=== PATIENT | male | born 1970 | race Caucasian/White ===

== ENCOUNTER 2016-07-09 15:28 | Inpatient (IN) | payer OTHER ==
[2016-07-09 16:08] VITALS: BMI 23.5
--- NOTE | 2016-07-09 18:22 | HP ---
CIWA Score - CIWA Score Nausea/Vomitin Muscle Tremors: 3 Anxiety: 3 Agitation: 3 Paroxysmal Sweats: 2 Orientation: 0-Oriented Tacttile Disturbances: 2-Mild Itch/Numbness/Burn Auditory Disturbances: 2-Mild Harshness/Frighten Visual Disturbances: 2-Mild Sensitivity Headache: 2-Mild CIWA-Ar Total Score: 22 Admission ROS [facility] - HPI Chief Complaint: I NEED HELP TO STOP DRINKING ALCOHOL Allergies/Adverse Reactions: Allergies Allergy/AdvReac Type Severity Reaction Status Date / Time No Known Allergies Allergy Verified 07/09/16 18:33 History of Present Illness: THIS 46 YEARS OLD MALE WITH ALCOHOL DEPENDENCE,WITHDRAWAL SYMPTOM,LAST DETOX [facility] 01/04 NICOTINE DEPENDENCE FX RIGHT FOREARM AND LEFT THUMB ON IMMOBILIZATION TREATED AT [place] ON 06/22/16 HAD APPOINTMENT TO SEE HAND SPECIALIST SURGEON ON 07/05 AT 11.00 AM LONGEST SOBRIETY 6 MONTHS HIV SINCE 2013 Exam Limitations: No Limitations - Ebola screening Have you traveled outside of the country in the last 21 days: No Have you traveled to any of the following countries: [place] Have you had contact with anyone from an Ebola affected area: No Have you been sick,other than usual withdrawal symptoms: No Do you have a fever: No - Review of Systems Constitutional: Loss of Appetite, Malaise, Night Sweats, Changes in sleep, Weakness, Unintentional Wgt. Loss EENT: reports: Nose Congestion Respiratory: reports: No Symptoms reported Cardiac: reports: No Symptoms Reported GI: reports: Nausea, Vomiting, Abdominal cramping : reports: No Symptoms Reported Musculoskeletal: reports: Back Pain, Muscle Pain, Other (FX OF RIGHT FOREARM ON IMMOBILIZATION FX OF LEFT THUMB ON IMMOBILIZATION) Neuro: reports: Tremors Endocrine: reports: No Symptoms Reported Hematology: reports: No Symptoms Reported Psychiatric: reports: other (INSOMNIA) Patient History - Patient Medical History Hx Anemia: No Hx Asthma: Yes (ON ALBUTEROL INHAER) Hx Chronic Obstructive Pulmonary Disease (COPD): No Hx Cancer: No Hx Cardiac Disorders: No Hx Congestive Heart Failure: No Hx Hypertension: Yes (NON COMPLIANCE) Hx Hypercholesterolemia: No Hx Pacemaker: No HX Cerebrovascular Accident: No Hx Seizures: No Hx Dementia: No Hx Diabetes: No Hx Gastrointestinal Disorders: No Hx Liver Disease: No Hx Genitourinary Disorders: No Hx Sexually Transmitted Disorders: No Hx Renal Disease (ESRD): No Hx Thyroid Disease: No Hx Human Immunodeficiency Virus (HIV): Yes (06/04. not sure of CD4 count, using A tripla ) Hx Hepatitis C: Yes (diagnosed 2012) Hx Depression: Yes Hx Suicide Attempt: No Hx Bipolar Disorder: Yes (hx using welbutrin in the past ) Hx Schizophrenia: No Other Medical History: NO SUICIDAL,NO HOMICIDAL - Patient Surgical History Past Surgical History: No Hx Neurologic Surgery: No Hx Cataract Extraction: No Hx Cardiac Surgery: No Hx Lung Surgery: No Hx Breast Surgery: No Hx Breast Biopsy: No Hx Abdominal Surgery: No Hx Appendectomy: No Hx Cholecystectomy: No Hx Genitourinary Surgery: No Hx Section: No Hx Orthopedic Surgery: No Anesthesia Reaction: No - PPD History Previous Implant?: Yes Documented Results: Positive w/proof Implanted On Prior [facility] Admission?: No PPD to be Administered?: No - Smoking Cessation Smoking history: Current every day smoker Have you smoked in the past 12 months: Yes Aproximately how many cigarettes per day: 20 Cigars Per Day: 0 Hx Chewing Tobacco Use: No Initiated information on smoking cessation: Yes 'Breaking Loose' booklet given: 07/09/16 - Substance & Tx. History Hx Alcohol Use: Yes Hx Substance Use: No Substance Use Type: Alcohol Hx Substance Use Treatment: Yes ([facility] 01/04) - Substances Abused Alcohol Route: Oral Frequency: Daily Amount used: 1/2 PINT OF VODKA/2 OF 6 PACKS OF 16 OZS OF BEER Age of first use: 17 Date of Last Use: 07/09/16 Family Disease History - Family Disease History Family Disease History: CA: Sister (BREAST), Other: Father (etoh,), Sister Admission Physical Exam [facility] - Vital Signs Vital Signs: Vital Signs - 24 hr 07/09/16 16:06 Temperature 97.4 F L Pulse Rate 81 Respiratory 20 Rate Blood Pressure 140/81 - Physical General Appearance: Yes: Moderate Distress, Tremorous, Irritable, Sweating, Anxious HEENTM: Yes: Nasal Congestion Respiratory: Yes: Lungs Clear Neck: Yes: Within Normal Limits Breast: Yes: Within Normal Limits Cardiology: Yes: Within Normal Limits, Regular Rhythm, Regular Rate, S1, S2 Abdominal: Yes: Within Normal Limits, Normal Bowel Sounds, Non Tender, Soft Genitourinary: Yes: Within Normal Limits Back: Yes: Muscle Spasm Musculoskeletal: Yes: Back pain, Muscle Pain Extremities: Yes: Tremors (FX F RIGHT FOREARM ON IMMOBILIZATION FX LEFT THUMB ON IMMOBILIZATION) Neurological: 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: 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 II-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 NML intact, Fully Oriented, Alert, Motor Strength 5/5 Integumentary: Yes: Dry Lymphatic: Yes: Within Normal Limits - Diagnostic (1) Tinea pedis Current Visit: No Status: Acute (2) Alcohol dependence with withdrawal Current Visit: No Status: Chronic Qualifiers: Complication of substance-induced condition: uncomplicated Qualified Code(s): F10.230 - Alcohol dependence with withdrawal, uncomplicated (3) Asthma Current Visit: No Status: Chronic (4) Bipolar disorder Current Visit: No Status: Chronic (5) HTN (hypertension) Current Visit: No Status: Chronic Qualifiers: Hypertension type: essential hypertension Qualified Code(s): I10 - Essential (primary) hypertension (6) Hepatitis C carrier Current Visit: No Status: Chronic (7) Nicotine dependence, uncomplicated Current Visit: No Status: Chronic Qualifiers: Nicotine product type: cigarettes Qualified Code(s): F17.210 - Nicotine dependence, cigarettes, uncomplicated (8) Weight decreased Current Visit: No Status: Chronic (9) Forearm fracture Current Visit: Yes Status: Acute (10) Fracture of thumb, left, closed Current Visit: Yes Status: Acute Cleared for Admission S - Detox or Rehab [facility] Level of Care: Medically Managed Detox Regimen/Protocol: Librium S Breath Alcohol Content Breath Alcohol Content: 0 Urine Drug Screen - Results Drug Screen Negative: Yes
[2016-07-09] MEDS ORDERED: MENTHOL/PHENOL 1 EACH UD MM PRN (18:48)
[2016-07-09] MEDS ORDERED: MAGNESIUM HYDROX 2400MG/30ML ORAL SUSPENSION 30 ML CUP PO PRN (18:48)
[2016-07-09] MEDS ORDERED: guaiFENesin/D-METHORPHAN HB 10 ML UNIT-DOSE CUPS PO PRN (18:48)
[2016-07-09] MEDS ORDERED: ACETAMINOPHEN 325 MG TABLET (FP) PO PRN (18:48)
[2016-07-09] MEDS ORDERED: LOPERAMIDE HCL 2 MG CAPSULE PO PRN (18:48)
[2016-07-09] MEDS ORDERED: MAG HYDROX/AL HYDROX/SIMETH 30 ML UNIT-DOSE CUP PO PRN (18:48)
[2016-07-09] MEDS ORDERED: chlordiazePOXIDE HCL 25 MG CAPSULE PO ONE (18:48)
[2016-07-09] MEDS ORDERED: P-EPHED 60MG/TRIPROLIDI 2.5MG TABLET PO PRN (18:48)
[2016-07-09] MEDS ORDERED: IBUPROFEN 400 MG TABLET (FP) PO PRN (18:48)
[2016-07-09] MEDS ORDERED: hydrOXYzine PAMOATE 50 MG CAPSULE (FP) PO PRN (18:48)
[2016-07-09] MEDS ORDERED: MAGNESIUM CITRATE 300 ML BOTTLE PO PRN (18:48)
[2016-07-09] MEDS ORDERED: chlordiazePOXIDE HCL 25 MG CAPSULE PO PRN (18:48)
[2016-07-09] MEDS ORDERED: IBUPROFEN 600 MG TABLET (FP) PO PRN (18:53)
[2016-07-09] MEDS: NICOTINE POLACRILEX 2 MG GUM BUC PRN (20:58)
[2016-07-09] MEDS: THIAMINE HCL 100 MG TABLET (FP) PO SCH (22:55)
[2016-07-09] MEDS: diphenhydrAMINE HCL 50 MG CAPSULE PO PRN (22:57)
[2016-07-09] MEDS: chlordiazePOXIDE HCL 25 MG CAPSULE PO SCH (23:00)
[2016-07-09] MEDS: TOLNAFTATE 1% CREAM 15 GM TUBE TP SCH (23:40)
[2016-07-09] MEDS: AMMONIUM LACTATE 12% LOTION 225 GM BOTTLE TP SCH (23:40)
[2016-07-10] MEDS: chlordiazePOXIDE HCL 25 MG CAPSULE PO SCH ×3 (06:21→17:19)
[2016-07-10] MEDS ORDERED: EMTRICITABINE 200MG/TENOFOVIR 300MG PO SCH (10:00)
[2016-07-10] MEDS ORDERED: PRENATAL VITAMINS W/ FOLIC ACID TABLET (FP) PO SCH (10:00)
[2016-07-10] MEDS ORDERED: EFAVIRENZ 600 MG TABLET PO SCH (10:00)
[2016-07-10] MEDS: TOLNAFTATE 1% CREAM 15 GM TUBE TP SCH ×2 (10:59→22:34)
[2016-07-10] MEDS: AMMONIUM LACTATE 12% LOTION 225 GM BOTTLE TP SCH ×2 (10:59→22:33)
--- NOTE | 2016-07-10 11:43 | PN ---
S CIWA - CIWA Score Nausea/Vomitin-Mild Nausea/No Vomiting Muscle Tremors: 3 Anxiety: 4-Mod. Anxious/Guarded Agitation: 4-Moderately Restless Paroxysmal Sweats: 3 Orientation: 0-Oriented Tacttile Disturbances: 0-None Auditory Disturbances: 0-None Visual Disturbances: 0-None Headache: 0-None Present CIWA-Ar Total Score: 15 BHS Progress Note (SOAP) Subjective: Anxiety,tremors,sweating,interrupted sleep,restless Objective: 07/10/16 11:42 Last Vital Signs Temp Pulse Resp BP Pulse Ox 99 F 84 18 135/87 07/09/16 22:46 07/09/16 22:46 07/10/16 03:30 07/09/16 22:46 Assessment: 07/10/16 11:43 Withdrawal sx. Plan: Continue detox
[2016-07-10] MEDS: NICOTINE POLACRILEX 2 MG GUM BUC PRN (20:19)
[2016-07-10] MEDS: chlordiazePOXIDE 5 MG CAPSULE PO SCH (22:34)
[2016-07-10] MEDS: diphenhydrAMINE HCL 50 MG CAPSULE PO PRN (22:34)
[2016-07-10] MEDS: THIAMINE HCL 100 MG TABLET (FP) PO SCH (22:34)
[2016-07-10] MEDS ORDERED: chlordiazePOXIDE HCL 25 MG CAPSULE PO SCH (23:00)
--- NOTE | 2016-07-11 00:47 | EKG ---
Test Reason : Blood Pressure : / mmHG Vent. Rate : 070 BPM Atrial Rate : 070 BPM P-R Int : 146 ms QRS Dur : 074 ms QT Int : 372 ms P-R-T Axes : 061 037 045 degrees QTc Int : 401 ms NORMAL SINUS RHYTHM NORMAL ECG NO PREVIOUS ECGS AVAILABLE Confirmed by MARBELLA BLACK MD ([id number]) on 07/11/2016 12:47:16 AM Referred By: Confirmed By:MARBELLA BLACK MD
[2016-07-11] MEDS: chlordiazePOXIDE 5 MG CAPSULE PO SCH (05:35)
[2016-07-11 10:12] VITALS: BP 124/79; PULSE 64; TEMP 96.8
--- NOTE | 2016-07-11 10:42 | PN ---
[facility] Progress Note Note: Patient signed out AMA and could not be seen
--- NOTE | 2016-07-11 17:06 | DS ---
[facility] Detox Discharge Summary Admission Date: 07/09/16 Discharge Date: 07/11/16 - History Present History: Alcohol Dependence Additional Comments: ADVISED PATIENT TO FOLLOW-UP WITH [facility] FOR GENERAL MEDICAL ASSESSMENT AND FOR ABNORMAL LAB VALUES. Pertinent Past History: HTN, Asthma,Bi-Polar Disorder, Hep C. - Physical Exam Results Vital Signs: Vital Signs Temperature 96.8 F L 07/11/16 10:11 Pulse Rate 64 07/11/16 10:11 Respiratory Rate 18 07/11/16 10:11 Blood Pressure 124/79 07/11/16 10:11 O2 Sat by Pulse Oximetry (%) Pertinent Admission Physical Exam Findings: WITHDRAWAL SYMPTOMS. - Treatment Hospital Course: Detoxed Safely - Medication Discharge Medications: Ambulatory Orders Albuterol Sulfate Inhaler - [Ventolin HFA Inhaler -] 2 inh PO Q4H PRN 06/11/13 Efavirenz/Emtricitab/Tenofovir [Atripla Tablet -] 1 tab PO HS 03/25/14 Bupropion HCl [Wellbutrin Xl -] 300 mg PO DAILY #30 tab.sr.24h 06/03/15 Trazodone HCl [Desyrel -] 150 mg PO HS #30 tablet 06/03/15 Gabapentin [Neurontin -] 800 mg PO BID 06/17/15 Gabapentin [Neurontin -] 800 mg PO HS #30 capsule 06/26/15 Quetiapine Fumarate [Seroquel -] 25 mg PO HS PRN #30 tablet 06/26/15 - Diagnosis (1) Human immunodeficiency virus infection Status: Chronic (2) Drug-induced mood disorder Status: Acute (3) Asthma Status: Chronic (4) Bipolar disorder Status: Chronic Qualifiers: Active/Remission status: remission status unspecified Qualified Code (s): F31.9 - Bipolar disorder, unspecified (5) HTN (hypertension) Status: Chronic Qualifiers: Hypertension type: essential hypertension Qualified Code(s): I10 - Essential (primary) hypertension (6) Hepatitis C carrier Status: Chronic (7) Nicotine dependence, uncomplicated Status: Chronic Qualifiers: Nicotine product type: cigarettes Qualified Code(s): F17.210 - Nicotine dependence, cigarettes, uncomplicated (8) Alcohol dependence with uncomplicated withdrawal Status: Acute - AMA Did Patient Leave Against Medical Advice: Yes (PATIENT DID NOT ANT TO STAY ON UNIT TO COMPLETE DETOX REGIMEN.)
[2016-07-11] MEDS ORDERED: chlordiazePOXIDE 5 MG CAPSULE PO SCH (23:00)
[2016-07-11] MEDS ORDERED: chlordiazePOXIDE HCL 10 MG CAPSULE PO SCH (23:00)
[2016-07-12] MEDS ORDERED: chlordiazePOXIDE HCL 10 MG CAPSULE PO SCH (23:00)
== END 2016-07-11 10:58 | disposition left against medical advice (07) | DRG 770 ==
LOC: YASAS 15:28 → Y3N 17:02
PROVIDERS: ADMIT Internal Medicine; ATTEND Internal Medicine
PROC: HZ2ZZZZ Detoxification Services for Substance Abuse Treatment (ICD-10-PCS; principal; 2016-07-09)
DX: F10.230 Alcohol dependence with withdrawal, uncomplicated (principal); F17.210 Nicotine dependence, cigarettes, uncomplicated; F19.24 Other psychoactive substance dependence with psychoactive substance-induced mood disorder; F31.9 Bipolar disorder, unspecified; Z21 Asymptomatic human immunodeficiency virus [HIV] infection status; I10 Essential (primary) hypertension; B18.2 Chronic viral hepatitis C; Z91.14 Patient's other noncompliance with medication regimen; B35.3 Tinea pedis; Z87.898 Personal history of other specified conditions; Z87.81 Personal history of (healed) traumatic fracture
CPT/HCPCS: 93005; 93010

== ENCOUNTER 2020-07-07 15:20 | Inpatient (IN) | payer OTHER ==
[2020-07-07] MEDS ORDERED: guaiFENesin 200 MG/10 ML 10 ML UNIT-DOSE CUPS PO PRN (17:30)
[2020-07-07] MEDS ORDERED: ACETAMINOPHEN 325 MG TABLET (FP) PO PRN (17:30)
[2020-07-07] MEDS ORDERED: MAGNESIUM HYDROX 2400MG/30ML ORAL SUSPENSION 30 ML CUP PO PRN (17:30)
[2020-07-07] MEDS ORDERED: METHADONE HCL 10 MG TABLET (FOR DETOX USE ONLY) PO ONE (17:30)
[2020-07-07] MEDS ORDERED: BISMUTH SUBSALICYLATE 524 MG/30 ML UD PO PRN (17:30)
[2020-07-07] MEDS ORDERED: P-EPHED 60MG/TRIPROLIDI 2.5MG TABLET PO PRN (17:30)
[2020-07-07] MEDS ORDERED: ONDANSETRON *ODT* 4 MG TABLET SL PRN (17:30)
[2020-07-07] MEDS ORDERED: MENTHOL/PHENOL 1 EACH UD MM PRN (17:30)
[2020-07-07] MEDS ORDERED: cloNIDine HCL 0.1 MG TABLET PO PRN (17:30)
[2020-07-07] MEDS ORDERED: IBUPROFEN 400 MG TABLET (FP) PO PRN (17:30)
[2020-07-07] MEDS ORDERED: MAG HYDROX/AL HYDROX/SIMETH 30 ML UNIT-DOSE CUP PO PRN (17:30)
[2020-07-07] MEDS ORDERED: MAGNESIUM CITRATE 300 ML BOTTLE PO PRN (17:30)
[2020-07-07] MEDS ORDERED: ALBUTEROL SO4 HFA INHALER IH PRN (17:35)
[2020-07-07] MEDS: hydrOXYzine PAMOATE 25 MG CAPSULE (FP) PO SCH ×2 (18:00→22:01)
[2020-07-07 18:20] VITALS: BMI 20.3
[2020-07-07] MEDS ORDERED: METHADONE HCL 10 MG TABLET (FOR DETOX USE ONLY) ONE (21:55)
[2020-07-07] MEDS: NICOTINE 21 MG/24 HOURS TOPICAL PATCH TD SCH (21:57)
[2020-07-07] MEDS: PRENATAL VITAMINS W/ FOLIC ACID TABLET (FP) PO SCH (21:58)
[2020-07-07] MEDS: MELATONIN 5 MG TABLETS PO SCH (22:00)
[2020-07-07] MEDS: THIAMINE HCL 100 MG TABLET (FP) PO SCH (22:00)
[2020-07-07] MEDS ORDERED: hydrOXYzine PAMOATE 25 MG CAPSULE (FP) PO ONE (22:01)
[2020-07-08] MEDS: CLINDAMYCIN HCL 150 MG CAPSULE (FP) PO SCH ×4 (01:07→19:12)
[2020-07-08] MEDS: hydrOXYzine PAMOATE 25 MG CAPSULE (FP) PO SCH ×5 (07:15→23:05)
[2020-07-08] MEDS ORDERED: METHADONE HCL 5 MG TABLET (FOR DETOX USE ONLY) ONE (09:39)
[2020-07-08] MEDS ORDERED: METHADONE HCL 10 MG TABLET (FOR DETOX USE ONLY) ONE (09:40)
[2020-07-08] MEDS ORDERED: METHADONE (DETOX) 20 MG, METHADONE (DETOX) 5 MG PO ONE (10:00)
[2020-07-08] MEDS: diazePAM 5 MG TABLET PO PRN ×2 (10:11→19:12)
[2020-07-08] MEDS: NICOTINE 21 MG/24 HOURS TOPICAL PATCH TD SCH (10:14)
[2020-07-08] MEDS: PRENATAL VITAMINS W/ FOLIC ACID TABLET (FP) PO SCH (10:15)
[2020-07-08 11:25] LABS: HEMATOCRIT 37.1 % (35.4-49); HEMOGLOBIN 12.3 GM/dL (11.7-16.9); MCH 26.9 pg (25.7-33.7); MCHC 33.1 g/dl (32.0-35.9); MEAN CELL VOLUME 81.2 fl (80-96); MEAN PLT VOLUME 8.3 fl (7.5-11.1); PLATELET COUNT 239 K/MM3 (134-434); RBC 4.57 M/mm3 (4.00-5.60); WHITE BLOOD COUNT 4.8 K/mm3 (4.0-10.0)
[2020-07-08 11:26] LABS: POTASSIUM 4.1 mmol/L (3.5-5.1)
[2020-07-08 11:30] LABS: ALBUMIN 2.7 g/dl (3.4-5.0); CALCIUM 8.2 mg/dL (8.5-10.1)
[2020-07-08 11:31] LABS: BLOOD UREA NITROGEN 17.7 mg/dL (7-18)
[2020-07-08 11:41] LABS: BILIRUBIN,TOTAL 0.3 mg/dL (0.2-1)
[2020-07-08 11:45] LABS: CREATININE 0.8 mg/dL (0.55-1.3)
[2020-07-08] MEDS ORDERED: PENICILLIN G BENZATHINE 2,400,000 UNIT/4 ML PFS IM ONE (14:34)
[2020-07-08] MEDS: MELATONIN 5 MG TABLETS PO SCH (23:05)
[2020-07-08] MEDS: THIAMINE HCL 100 MG TABLET (FP) PO SCH (23:05)
[2020-07-09] MEDS: CLINDAMYCIN HCL 150 MG CAPSULE (FP) PO SCH ×5 (00:05→23:32)
[2020-07-09] MEDS: NICOTINE POLACRILEX 4 MG GUM BUC PRN ×3 (03:50→17:35)
[2020-07-09] MEDS: diazePAM 5 MG TABLET PO PRN ×4 (03:53→22:36)
[2020-07-09] MEDS: hydrOXYzine PAMOATE 25 MG CAPSULE (FP) PO SCH ×6 (05:07→22:36)
[2020-07-09] MEDS: METHOCARBAMOL 500 MG TABLET PO PRN (09:10)
[2020-07-09] MEDS ORDERED: METHADONE HCL 10 MG TABLET (FOR DETOX USE ONLY) PO ONE (10:00)
[2020-07-09] MEDS: PRENATAL VITAMINS W/ FOLIC ACID TABLET (FP) PO SCH (10:09)
[2020-07-09] MEDS: NICOTINE 21 MG/24 HOURS TOPICAL PATCH TD SCH (10:11)
[2020-07-09] MEDS: ELVITEG/COB/EMTRI/TENOF (GENVOYA) TABLET (NF) PO SCH (17:32)
[2020-07-09] MEDS: MELATONIN 5 MG TABLETS PO SCH (22:36)
[2020-07-09] MEDS: THIAMINE HCL 100 MG TABLET (FP) PO SCH (22:36)
[2020-07-10] MEDS: CLINDAMYCIN HCL 150 MG CAPSULE (FP) PO SCH ×5 (06:30→23:00)
[2020-07-10] MEDS: hydrOXYzine PAMOATE 25 MG CAPSULE (FP) PO SCH ×2 (06:30→09:26)
[2020-07-10] MEDS ORDERED: METHADONE HCL 5 MG TABLET (FOR DETOX USE ONLY) ONE (09:24)
[2020-07-10] MEDS ORDERED: METHADONE HCL 10 MG TABLET (FOR DETOX USE ONLY) ONE (09:24)
[2020-07-10] MEDS: diazePAM 5 MG TABLET PO PRN ×3 (09:32→22:20)
[2020-07-10] MEDS: NICOTINE 21 MG/24 HOURS TOPICAL PATCH TD SCH (09:38)
[2020-07-10] MEDS: PRENATAL VITAMINS W/ FOLIC ACID TABLET (FP) PO SCH (09:44)
[2020-07-10] MEDS ORDERED: METHADONE (DETOX) 10 MG, METHADONE (DETOX) 5 MG PO ONE (10:00)
[2020-07-10] MEDS: ELVITEG/COB/EMTRI/TENOF (GENVOYA) TABLET (NF) PO SCH (10:10)
[2020-07-10] MEDS: NICOTINE POLACRILEX 4 MG GUM BUC PRN ×2 (10:14→18:00)
[2020-07-10] MEDS ORDERED: cloNIDine HCL 0.1 MG TABLET PO ONE (11:25)
[2020-07-10] MEDS: cloNIDine HCL 0.1 MG TABLET PO PRN (17:57)
[2020-07-10] MEDS: METHOCARBAMOL 500 MG TABLET PO PRN (18:01)
[2020-07-10] MEDS: SUVOREXANT 10 MG TABLET PO PRN (22:19)
[2020-07-10] MEDS: THIAMINE HCL 100 MG TABLET (FP) PO SCH (22:20)
[2020-07-10] MEDS: MELATONIN 5 MG TABLETS PO SCH (22:58)
[2020-07-11] MEDS: CLINDAMYCIN HCL 150 MG CAPSULE (FP) PO SCH ×3 (06:15→17:44)
[2020-07-11] MEDS: diazePAM 5 MG TABLET PO PRN (06:16)
[2020-07-11] MEDS ORDERED: METHADONE HCL 10 MG TABLET (FOR DETOX USE ONLY) PO ONE (10:00)
[2020-07-11] MEDS: hydrOXYzine PAMOATE 50 MG CAPSULE (FP) PO PRN ×3 (10:31→22:34)
[2020-07-11] MEDS: NICOTINE 21 MG/24 HOURS TOPICAL PATCH TD SCH (10:35)
[2020-07-11] MEDS: PRENATAL VITAMINS W/ FOLIC ACID TABLET (FP) PO SCH (10:35)
[2020-07-11] MEDS: cloNIDine HCL 0.1 MG TABLET PO PRN ×2 (11:17→17:45)
[2020-07-11] MEDS: ELVITEG/COB/EMTRI/TENOF (GENVOYA) TABLET (NF) PO SCH (13:06)
[2020-07-11] MEDS: NICOTINE POLACRILEX 4 MG GUM BUC PRN (17:46)
[2020-07-11] MEDS: SUVOREXANT 10 MG TABLET PO PRN (22:33)
[2020-07-11] MEDS: THIAMINE HCL 100 MG TABLET (FP) PO SCH (22:34)
[2020-07-11] MEDS: MELATONIN 5 MG TABLETS PO SCH (22:34)
[2020-07-12] MEDS: CLINDAMYCIN HCL 150 MG CAPSULE (FP) PO SCH ×3 (00:05→14:01)
[2020-07-12] MEDS ORDERED: METHADONE HCL 5 MG TABLET (FOR DETOX USE ONLY) PO ONE (06:00)
[2020-07-12] MEDS: ELVITEG/COB/EMTRI/TENOF (GENVOYA) TABLET (NF) PO SCH (10:32)
[2020-07-12] MEDS: NICOTINE 21 MG/24 HOURS TOPICAL PATCH TD SCH (10:33)
[2020-07-12] MEDS: PRENATAL VITAMINS W/ FOLIC ACID TABLET (FP) PO SCH (10:33)
[2020-07-12] MEDS: METHOCARBAMOL 500 MG TABLET PO PRN (10:34)
[2020-07-12] MEDS: hydrOXYzine PAMOATE 50 MG CAPSULE (FP) PO PRN (10:34)
[2020-07-12] MEDS: cloNIDine HCL 0.1 MG TABLET PO PRN (14:01)
[2020-07-12 14:58] VITALS: BP 151/92; PULSE 104; TEMP 97.2
== END 2020-07-12 17:26 | disposition other institution (70) | DRG 773 ==
LOC: YASAS 15:20 → Y6N 21:18
PROVIDERS: ADMIT Allergy & Immunology; ATTEND Allergy & Immunology
PROC: HZ2ZZZZ Detoxification Services for Substance Abuse Treatment (ICD-10-PCS; principal; 2020-07-07)
DX: F11.23 Opioid dependence with withdrawal (principal); F17.210 Nicotine dependence, cigarettes, uncomplicated; F33.1 Major depressive disorder, recurrent, moderate; F19.282 Other psychoactive substance dependence with psychoactive substance-induced sleep disorder; F19.280 Other psychoactive substance dependence with psychoactive substance-induced anxiety disorder; F19.24 Other psychoactive substance dependence with psychoactive substance-induced mood disorder; F39 Unspecified mood [affective] disorder; Z21 Asymptomatic human immunodeficiency virus [HIV] infection status; L03.113 Cellulitis of right upper limb; L03.114 Cellulitis of left upper limb; B18.2 Chronic viral hepatitis C; J45.909 Unspecified asthma, uncomplicated; Z62.810 Personal history of physical and sexual abuse in childhood; Z20.2 Contact with and (suspected) exposure to infections with a predominantly sexual mode of transmission; R63.4 Abnormal weight loss; Z68.20 Body mass index [BMI] 20.0-20.9, adult; Z86.11 Personal history of tuberculosis; Z91.5 Personal history of self-harm; Z56.0 Unemployment, unspecified; Z59.0 Homelessness
CPT/HCPCS: 36415; 71046-TC-FY; 80053; 85027; 86593; 86780; 93005; 93010; C9803; J0735; U0003

== ENCOUNTER 2020-07-12 17:43 | Inpatient (IN) | payer OTHER ==
[~2020-07-12 17:43] MED LIST: ACETAMINOPHEN 325 MG TABLET (FP) PO PRN; ALBUTEROL SO4 HFA INHALER IH PRN; LOPERAMIDE HCL 2 MG CAPSULE PO PRN; MAG HYDROX/AL HYDROX/SIMETH 30 ML UNIT-DOSE CUP PO PRN; MAGNESIUM CITRATE 300 ML BOTTLE PO PRN; MAGNESIUM HYDROX 2400MG/30ML ORAL SUSPENSION 30 ML CUP PO PRN; P-EPHED 60MG/TRIPROLIDI 2.5MG TABLET PO PRN; guaiFENesin 200 MG/10 ML 10 ML UNIT-DOSE CUPS PO PRN
[2020-07-12] MEDS: CLINDAMYCIN HCL 150 MG CAPSULE (FP) PO SCH (19:00)
[2020-07-12] MEDS: MELATONIN 5 MG TABLETS PO SCH (21:38)
[2020-07-12] MEDS: THIAMINE HCL 100 MG TABLET (FP) PO SCH (21:38)
[2020-07-13] MEDS: CLINDAMYCIN HCL 150 MG CAPSULE (FP) PO SCH ×4 (00:25→11:48)
[2020-07-13] MEDS: PRENATAL VITAMINS W/ FOLIC ACID TABLET (FP) PO SCH (10:10)
[2020-07-13] MEDS: NICOTINE 21 MG/24 HOURS TOPICAL PATCH TD SCH (10:10)
[2020-07-13] MEDS: NICOTINE POLACRILEX 4 MG GUM BC PRN ×2 (10:11→21:34)
[2020-07-13] MEDS: ELVITEG/COB/EMTRI/TENOF (GENVOYA) TABLET (NF) PO SCH (10:11)
[2020-07-13] MEDS: METHOCARBAMOL 500 MG TABLET PO PRN ×2 (11:48→21:55)
[2020-07-13] MEDS: cloNIDine HCL 0.1 MG TABLET PO PRN ×2 (11:48→22:58)
[2020-07-13] MEDS: IBUPROFEN 400 MG TABLET (FP) PO PRN (17:21)
[2020-07-13] MEDS: hydrOXYzine PAMOATE 25 MG CAPSULE (FP) PO PRN ×2 (17:22→21:35)
[2020-07-13] MEDS: MELATONIN 5 MG TABLETS PO SCH (21:34)
[2020-07-13] MEDS: THIAMINE HCL 100 MG TABLET (FP) PO SCH (21:35)
[2020-07-14] MEDS ORDERED: PT OWN MED DRAWER 7, Y5N ONE ×2 (08:39→10:25)
[2020-07-14] MEDS: ELVITEG/COB/EMTRI/TENOF (GENVOYA) TABLET (NF) PO SCH (09:30)
[2020-07-14] MEDS: PRENATAL VITAMINS W/ FOLIC ACID TABLET (FP) PO SCH (09:30)
[2020-07-14] MEDS: cloNIDine HCL 0.1 MG TABLET PO PRN ×2 (09:33→21:20)
[2020-07-14] MEDS: NICOTINE 21 MG/24 HOURS TOPICAL PATCH TD SCH (09:33)
[2020-07-14] MEDS: NICOTINE POLACRILEX 4 MG GUM BC PRN (09:34)
[2020-07-14] MEDS ORDERED: BUPRENORPHINE/NALOXONE 2 MG/0.5 MG FILM PACKET SL ONE (13:30)
[2020-07-14] MEDS ORDERED: BUPRENORPHINE/NALOXONE 4 MG/1 MG FILM PACKET SL SCH (14:00)
[2020-07-14] MEDS ORDERED: BUPRENORPHINE/NALOXONE 4 MG/1 MG FILM PACKET SL ONE (18:00)
[2020-07-14] MEDS: METHOCARBAMOL 500 MG TABLET PO PRN (18:09)
[2020-07-14] MEDS: hydrOXYzine PAMOATE 25 MG CAPSULE (FP) PO PRN (21:20)
[2020-07-14] MEDS: THIAMINE HCL 100 MG TABLET (FP) PO SCH (21:20)
[2020-07-14] MEDS: MELATONIN 5 MG TABLETS PO SCH (21:20)
[2020-07-15] MEDS ORDERED: BUPRENORPHINE/NALOXONE 4 MG/1 MG FILM PACKET SL SCH (06:00)
[2020-07-15] MEDS: PRENATAL VITAMINS W/ FOLIC ACID TABLET (FP) PO SCH (09:56)
[2020-07-15] MEDS: hydrOXYzine PAMOATE 25 MG CAPSULE (FP) PO PRN ×2 (09:56→21:49)
[2020-07-15] MEDS: ELVITEG/COB/EMTRI/TENOF (GENVOYA) TABLET (NF) PO SCH (09:57)
[2020-07-15] MEDS: NICOTINE 21 MG/24 HOURS TOPICAL PATCH TD SCH (09:57)
[2020-07-15] MEDS: cloNIDine HCL 0.1 MG TABLET PO PRN ×2 (09:58→21:49)
[2020-07-15] MEDS ORDERED: PENICILLIN G BENZATHINE 2,400,000 UNIT/4 ML PFS IM ONE (10:00)
[2020-07-15] MEDS: TOLNAFTATE 1% CREAM 15 GM TUBE TP SCH ×2 (10:01→21:50)
[2020-07-15] MEDS: VITAMINS A AND D TOPICAL OINTMENT 60 GM TUBE TP SCH ×2 (13:02→21:50)
[2020-07-15] MEDS: BUPRENORPHINE/NALOXONE 8 MG/2 MG FILM PACKET SL SCH ×2 (14:07→17:16)
[2020-07-15] MEDS: THIAMINE HCL 100 MG TABLET (FP) PO SCH (21:49)
[2020-07-15] MEDS: METHOCARBAMOL 500 MG TABLET PO PRN (21:49)
[2020-07-15] MEDS: MELATONIN 5 MG TABLETS PO SCH (21:49)
[2020-07-16] MEDS: IBUPROFEN 400 MG TABLET (FP) PO PRN (01:55)
[2020-07-16] MEDS: BUPRENORPHINE/NALOXONE 8 MG/2 MG FILM PACKET SL SCH ×3 (06:21→17:24)
[2020-07-16] MEDS: ELVITEG/COB/EMTRI/TENOF (GENVOYA) TABLET (NF) PO SCH (07:09)
[2020-07-16] MEDS: NICOTINE 21 MG/24 HOURS TOPICAL PATCH TD SCH (10:01)
[2020-07-16] MEDS: PRENATAL VITAMINS W/ FOLIC ACID TABLET (FP) PO SCH (10:01)
[2020-07-16] MEDS: VITAMINS A AND D TOPICAL OINTMENT 60 GM TUBE TP SCH ×2 (10:02→21:34)
[2020-07-16] MEDS: TOLNAFTATE 1% CREAM 15 GM TUBE TP SCH ×2 (10:02→21:34)
[2020-07-16] MEDS: cloNIDine HCL 0.1 MG TABLET PO PRN (10:13)
[2020-07-16] MEDS: METHOCARBAMOL 500 MG TABLET PO PRN ×2 (10:16→21:33)
[2020-07-16] MEDS: NICOTINE POLACRILEX 4 MG GUM BC PRN ×3 (10:17→17:27)
[2020-07-16] MEDS: MELATONIN 5 MG TABLETS PO SCH (21:33)
[2020-07-16] MEDS: hydrOXYzine PAMOATE 25 MG CAPSULE (FP) PO PRN (21:33)
[2020-07-16] MEDS: THIAMINE HCL 100 MG TABLET (FP) PO SCH (21:33)
[2020-07-17] MEDS: BUPRENORPHINE/NALOXONE 8 MG/2 MG FILM PACKET SL SCH ×3 (06:42→18:59)
[2020-07-17] MEDS: NICOTINE 21 MG/24 HOURS TOPICAL PATCH TD SCH (09:04)
[2020-07-17] MEDS: ELVITEG/COB/EMTRI/TENOF (GENVOYA) TABLET (NF) PO SCH (09:04)
[2020-07-17] MEDS: NICOTINE POLACRILEX 4 MG GUM BC PRN ×3 (09:04→19:01)
[2020-07-17] MEDS: TOLNAFTATE 1% CREAM 15 GM TUBE TP SCH ×2 (09:04→21:58)
[2020-07-17] MEDS: PRENATAL VITAMINS W/ FOLIC ACID TABLET (FP) PO SCH (09:04)
[2020-07-17] MEDS: VITAMINS A AND D TOPICAL OINTMENT 60 GM TUBE TP SCH ×2 (09:04→21:36)
[2020-07-17] MEDS: MELATONIN 5 MG TABLETS PO SCH (21:31)
[2020-07-17] MEDS: hydrOXYzine PAMOATE 25 MG CAPSULE (FP) PO PRN (21:32)
[2020-07-17] MEDS: METHOCARBAMOL 500 MG TABLET PO PRN (21:33)
[2020-07-17] MEDS: cloNIDine HCL 0.1 MG TABLET PO PRN (21:35)
[2020-07-17] MEDS: THIAMINE HCL 100 MG TABLET (FP) PO SCH (21:37)
[2020-07-18] MEDS: BUPRENORPHINE/NALOXONE 8 MG/2 MG FILM PACKET SL SCH ×3 (06:37→17:45)
[2020-07-18] MEDS: NICOTINE 21 MG/24 HOURS TOPICAL PATCH TD SCH (10:25)
[2020-07-18] MEDS: ELVITEG/COB/EMTRI/TENOF (GENVOYA) TABLET (NF) PO SCH (10:26)
[2020-07-18] MEDS: TOLNAFTATE 1% CREAM 15 GM TUBE TP SCH ×2 (10:27→21:56)
[2020-07-18] MEDS: VITAMINS A AND D TOPICAL OINTMENT 60 GM TUBE TP SCH ×2 (10:27→21:56)
[2020-07-18] MEDS: PRENATAL VITAMINS W/ FOLIC ACID TABLET (FP) PO SCH (10:27)
[2020-07-18] MEDS: NICOTINE POLACRILEX 4 MG GUM BC PRN ×3 (10:58→22:02)
[2020-07-18] MEDS: THIAMINE HCL 100 MG TABLET (FP) PO SCH (21:55)
[2020-07-18] MEDS: MELATONIN 5 MG TABLETS PO SCH (21:57)
[2020-07-18] MEDS: METHOCARBAMOL 500 MG TABLET PO PRN (22:00)
[2020-07-18] MEDS: hydrOXYzine PAMOATE 25 MG CAPSULE (FP) PO PRN (22:02)
[2020-07-19] MEDS: BUPRENORPHINE/NALOXONE 8 MG/2 MG FILM PACKET SL SCH ×3 (07:14→17:56)
[2020-07-19] MEDS: NICOTINE 21 MG/24 HOURS TOPICAL PATCH TD SCH (09:44)
[2020-07-19] MEDS: ELVITEG/COB/EMTRI/TENOF (GENVOYA) TABLET (NF) PO SCH (09:45)
[2020-07-19] MEDS: PRENATAL VITAMINS W/ FOLIC ACID TABLET (FP) PO SCH (09:46)
[2020-07-19] MEDS: VITAMINS A AND D TOPICAL OINTMENT 60 GM TUBE TP SCH ×2 (09:46→21:35)
[2020-07-19] MEDS: TOLNAFTATE 1% CREAM 15 GM TUBE TP SCH ×2 (09:46→21:35)
[2020-07-19] MEDS: IBUPROFEN 400 MG TABLET (FP) PO PRN (21:33)
[2020-07-19] MEDS: MELATONIN 5 MG TABLETS PO SCH (21:34)
[2020-07-19] MEDS: THIAMINE HCL 100 MG TABLET (FP) PO SCH (21:34)
[2020-07-19] MEDS: hydrOXYzine PAMOATE 25 MG CAPSULE (FP) PO PRN (21:37)
[2020-07-20] MEDS: BUPRENORPHINE/NALOXONE 8 MG/2 MG FILM PACKET SL SCH ×3 (06:44→17:32)
[2020-07-20] MEDS: ELVITEG/COB/EMTRI/TENOF (GENVOYA) TABLET (NF) PO SCH (08:40)
[2020-07-20] MEDS ORDERED: COLLOIDAL OATMEAL 1 BAR EACH TP PRN (10:19)
[2020-07-20] MEDS: NICOTINE 21 MG/24 HOURS TOPICAL PATCH TD SCH (10:26)
[2020-07-20] MEDS: PRENATAL VITAMINS W/ FOLIC ACID TABLET (FP) PO SCH (10:26)
[2020-07-20] MEDS: VITAMINS A AND D TOPICAL OINTMENT 60 GM TUBE TP SCH ×2 (10:27→22:16)
[2020-07-20] MEDS: TOLNAFTATE 1% CREAM 15 GM TUBE TP SCH ×2 (10:28→21:23)
[2020-07-20] MEDS: NICOTINE POLACRILEX 4 MG GUM BC PRN ×3 (10:29→21:24)
[2020-07-20] MEDS: MELATONIN 5 MG TABLETS PO SCH (21:22)
[2020-07-20] MEDS: hydrOXYzine PAMOATE 25 MG CAPSULE (FP) PO PRN (21:22)
[2020-07-20] MEDS: THIAMINE HCL 100 MG TABLET (FP) PO SCH (21:22)
[2020-07-21] MEDS: BUPRENORPHINE/NALOXONE 8 MG/2 MG FILM PACKET SL SCH ×3 (06:46→17:37)
[2020-07-21] MEDS: NICOTINE 21 MG/24 HOURS TOPICAL PATCH TD SCH (09:50)
[2020-07-21] MEDS: TOLNAFTATE 1% CREAM 15 GM TUBE TP SCH ×2 (09:50→21:41)
[2020-07-21] MEDS: ELVITEG/COB/EMTRI/TENOF (GENVOYA) TABLET (NF) PO SCH (09:50)
[2020-07-21] MEDS: VITAMINS A AND D TOPICAL OINTMENT 60 GM TUBE TP SCH ×2 (09:50→21:38)
[2020-07-21] MEDS: PRENATAL VITAMINS W/ FOLIC ACID TABLET (FP) PO SCH (09:50)
[2020-07-21] MEDS: NICOTINE POLACRILEX 4 MG GUM BC PRN ×2 (09:53→17:38)
[2020-07-21] MEDS ORDERED: BUPRENORPHINE/NALOXONE 8 MG/2 MG FILM PACKET SL SCH (14:08)
[2020-07-21] MEDS: MELATONIN 5 MG TABLETS PO SCH (21:36)
[2020-07-21] MEDS: hydrOXYzine PAMOATE 25 MG CAPSULE (FP) PO PRN (21:37)
[2020-07-21] MEDS: THIAMINE HCL 100 MG TABLET (FP) PO SCH (21:37)
[2020-07-22] MEDS: BUPRENORPHINE/NALOXONE 8 MG/2 MG FILM PACKET SL SCH (06:25)
[2020-07-22 07:16] VITALS: BP 120/67; PULSE 64; TEMP 97.5
[2020-07-22] MEDS: PRENATAL VITAMINS W/ FOLIC ACID TABLET (FP) PO SCH (09:32)
[2020-07-22] MEDS: ELVITEG/COB/EMTRI/TENOF (GENVOYA) TABLET (NF) PO SCH (09:32)
[2020-07-22] MEDS: VITAMINS A AND D TOPICAL OINTMENT 60 GM TUBE TP SCH (09:33)
[2020-07-22] MEDS: NICOTINE 21 MG/24 HOURS TOPICAL PATCH TD SCH (09:33)
[2020-07-22] MEDS: TOLNAFTATE 1% CREAM 15 GM TUBE TP SCH (09:33)
[2020-07-22] MEDS ORDERED: PENICILLIN G BENZATHINE 2,400,000 UNIT/4 ML PFS IM ONE (10:00)
== END 2020-07-22 09:55 | disposition home or self-care (01) | DRG 772 ==
LOC: YASAS 17:43 → Y5N 17:44
PROVIDERS: ADMIT Allergy & Immunology; ATTEND Allergy & Immunology
PROC: HZ42ZZZ Group Counseling for Substance Abuse Treatment, Cognitive-Behavioral (ICD-10-PCS; principal; 2020-07-12)
DX: F11.20 Opioid dependence, uncomplicated (principal); F17.210 Nicotine dependence, cigarettes, uncomplicated; F39 Unspecified mood [affective] disorder; Z21 Asymptomatic human immunodeficiency virus [HIV] infection status; J45.909 Unspecified asthma, uncomplicated; B18.2 Chronic viral hepatitis C; Z51.81 Encounter for therapeutic drug level monitoring; Z79.899 Other long term (current) drug therapy
CPT/HCPCS: C9803; J0735; U0003

== ENCOUNTER 2021-03-08 16:33 | Inpatient (IN) | payer OTHER ==
[2021-03-09] MEDS ORDERED: guaiFENesin 200 MG/10 ML 10 ML UNIT-DOSE CUPS PO PRN (02:41)
[2021-03-09] MEDS ORDERED: MAGNESIUM HYDROX 2400MG/30ML ORAL SUSPENSION 30 ML CUP PO PRN (02:41)
[2021-03-09] MEDS ORDERED: P-EPHED 60MG/TRIPROLIDI 2.5MG TABLET PO PRN (02:41)
[2021-03-09] MEDS ORDERED: ACETAMINOPHEN 325 MG TABLET (FP) PO PRN (02:41)
[2021-03-09] MEDS ORDERED: MAGNESIUM CITRATE 300 ML BOTTLE PO PRN (02:41)
[2021-03-09] MEDS ORDERED: LOPERAMIDE HCL 2 MG CAPSULE PO PRN (02:41)
[2021-03-09] MEDS ORDERED: MAG HYDROX/AL HYDROX/SIMETH 30 ML UNIT-DOSE CUP PO PRN (02:41)
[2021-03-09] MEDS: IBUPROFEN 400 MG TABLET (FP) PO PRN (02:54)
[2021-03-09] MEDS ORDERED: methaDONE HCL 10 MG TABLET PO ONE (08:54)
[2021-03-09] MEDS ORDERED: ALBUTEROL SO4 HFA INHALER IH PRN (08:57)
[2021-03-09] MEDS: PRENATAL VITAMINS W/ FOLIC ACID TABLET (FP) PO SCH (12:27)
[2021-03-09] MEDS ORDERED: TRIMETHOBENZAMIDE HCL 200MG/2ML INJ IM ONE ×3 (15:01→23:49)
[2021-03-09 16:58] LABS: ALBUMIN 2.9 g/dl (3.4-5.0); BLOOD UREA NITROGEN 14.3 mg/dL (7-18); CALCIUM 8.4 mg/dL (8.5-10.1)
[2021-03-09 17:01] LABS: CREATININE 0.8 mg/dL (0.55-1.3)
[2021-03-09 17:04] LABS: BILIRUBIN,TOTAL 0.6 mg/dL (0.2-1); TOT PROT 6.8 g/dl (6.4-8.2)
[2021-03-09 17:06] LABS: HEMATOCRIT 33.5 % (35.4-49); HEMOGLOBIN 11.2 GM/dL (11.7-16.9); MCH 26.7 pg (25.7-33.7); MCHC 33.3 g/dl (32.0-35.9); MEAN CELL VOLUME 80.2 fl (80-96); MEAN PLT VOLUME 8.1 fl (7.5-11.1); PLATELET COUNT 294 10^3/uL (134-434); RBC 4.18 M/mm3 (4.00-5.60); WHITE BLOOD COUNT 4.1 K/mm3 (4.0-10.0)
[2021-03-09] MEDS: THIAMINE HCL 100 MG TABLET (FP) PO SCH (21:06)
[2021-03-09] MEDS: MELATONIN 5 MG TABLETS PO SCH (21:06)
[2021-03-09] MEDS ORDERED: PATIENT'S OWN MEDICATION (NON-FORMULARY) (Efavirenz/Emtricitab/Tenofovir 1 TAB Tab) PO SCH (22:00)
[2021-03-09] MEDS: EFAVIRENZ 600 MG TABLET PO SCH (22:15)
[2021-03-09] MEDS: EMTRICITABINE 200MG/TENOFOVIR 300MG PO SCH (22:16)
[2021-03-09] MEDS: GABAPENTIN 400 MG CAPSULE PO SCH (22:16)
[2021-03-09] MEDS ORDERED: LORazepam 2 MG/ML SDV VIAL IM ONE (23:50)
[2021-03-09] MEDS ORDERED: cloNIDine HCL 0.1 MG TABLET PO PRN (23:56)
[2021-03-10 01:26] LABS: SYPHILIS W/ RPR CONF REACTIVE (NONREACTIVE)
[2021-03-10] MEDS: methaDONE HCL 40 MG DISPERSABLE TABLET PO SCH (06:51)
[2021-03-10] MEDS: PRENATAL VITAMINS W/ FOLIC ACID TABLET (FP) PO SCH (10:35)
[2021-03-10] MEDS ORDERED: TRIMETHOBENZAMIDE HCL 200MG/2ML INJ IM PRN (20:34)
[2021-03-10] MEDS: MELATONIN 5 MG TABLETS PO SCH (23:02)
[2021-03-10] MEDS: THIAMINE HCL 100 MG TABLET (FP) PO SCH (23:06)
[2021-03-10] MEDS: GABAPENTIN 400 MG CAPSULE PO SCH (23:11)
[2021-03-10] MEDS: EMTRICITABINE 200MG/TENOFOVIR 300MG PO SCH (23:33)
[2021-03-10] MEDS: EFAVIRENZ 600 MG TABLET PO SCH (23:34)
[2021-03-11] MEDS: methaDONE HCL 40 MG DISPERSABLE TABLET PO SCH (06:12)
[2021-03-11] MEDS: PRENATAL VITAMINS W/ FOLIC ACID TABLET (FP) PO SCH (10:03)
[2021-03-11] MEDS: MELATONIN 5 MG TABLETS PO SCH (22:03)
[2021-03-11] MEDS: EFAVIRENZ 600 MG TABLET PO SCH (22:03)
[2021-03-11] MEDS: GABAPENTIN 400 MG CAPSULE PO SCH (22:03)
[2021-03-11] MEDS: THIAMINE HCL 100 MG TABLET (FP) PO SCH (22:03)
[2021-03-11] MEDS: EMTRICITABINE 200MG/TENOFOVIR 300MG PO SCH (22:03)
[2021-03-12] MEDS: methaDONE HCL 40 MG DISPERSABLE TABLET PO SCH (06:22)
[2021-03-12 09:18] VITALS: BP 139/94; PULSE 79; TEMP 98.1
[2021-03-12] MEDS: PRENATAL VITAMINS W/ FOLIC ACID TABLET (FP) PO SCH (10:03)
[2021-03-12] MEDS: IBUPROFEN 400 MG TABLET (FP) PO PRN (10:04)
== END 2021-03-12 23:43 | disposition short-term general hospital (02) | DRG 772 ==
LOC: YASAS 16:33 → Y3W 03-09 11:14
PROVIDERS: ADMIT Allergy & Immunology; ATTEND Allergy & Immunology
PROC: HZ42ZZZ Group Counseling for Substance Abuse Treatment, Cognitive-Behavioral (ICD-10-PCS; principal; 2021-03-09)
DX: F10.20 Alcohol dependence, uncomplicated (principal); F11.20 Opioid dependence, uncomplicated; F14.20 Cocaine dependence, uncomplicated; F17.210 Nicotine dependence, cigarettes, uncomplicated; R11.2 Nausea with vomiting, unspecified; Z86.19 Personal history of other infectious and parasitic diseases
CPT/HCPCS: 36415; 80053; 85027; 86593; 86780; 86803; 87522; C9803; J0735; U0003; U0005

== ENCOUNTER 2021-03-12 12:49 | Inpatient (IN) | payer OTHER ==
[2021-03-12] MEDS ORDERED: SODIUM CHLORIDE 0.9% 500 ML INFUS.BAG IV ONE (14:40)
[2021-03-12] MEDS ORDERED: ACETAMINOPHEN 1000 MG/100 ML VIAL IVPB ONE (14:40)
[2021-03-12] MEDS ORDERED: ONDANSETRON 4 MG/2 ML VIAL IVPUSH ONE (14:40)
[2021-03-12] MEDS ORDERED: MAG HYDROX/AL HYDROX/SIMETH -MYLANTA- ORAL SUSPENSION PO ONE (14:40)
[2021-03-12] MEDS ORDERED: FAMOTIDINE 20 MG/50 ML IVPB 20 MG/50 ML MG IVPB ONE ×3 (14:40→20:34)
[2021-03-12] MEDS ORDERED: ACETAMINOPHEN INJECTION 100 ML IVPB ONE (14:52)
[2021-03-12] MEDS ORDERED: MAG HYDROX/AL HYDROX/SIMETH 30 ML UNIT-DOSE CUP ONE (14:52)
[2021-03-12] MEDS ORDERED: ONDANSETRON 4 MG/2 ML VIAL ONE (14:53)
[2021-03-12 16:46] LABS: EOS % 0.8 % (0-4.5); HEMATOCRIT 37.2 % (35.4-49); HEMOGLOBIN 12.3 GM/dL (11.7-16.9); LYMPH % 39.5 % (8-40); MCHC 33.2 g/dl (32.0-35.9); MEAN CELL VOLUME 81.2 fl (80-96); MEAN PLT VOLUME 8.3 fl (7.5-11.1); MONO % 11.8 % (3.8-10.2); NEUT % 46.9 % (42.8-82.8); PLATELET COUNT 334 10^3/uL (134-434); RBC 4.58 M/mm3 (4.00-5.60); WHITE BLOOD COUNT 5.7 K/mm3 (4.0-10.0)
[2021-03-12 17:11] LABS: CHLORIDE 98 mmol/L (98-107); SODIUM 128 mmol/L (136-145)
[2021-03-12 17:14] LABS: ALBUMIN 2.8 g/dl (3.4-5.0); BLOOD UREA NITROGEN 18.8 mg/dL (7-18); CALCIUM 8.3 mg/dL (8.5-10.1); CO2 25 mmol/L (21-32); GLUCOSE,RANDOM 78 mg/dL (74-106); LIPASE 40 U/L (73-393)
[2021-03-12 17:15] LABS: MAGNESIUM 2.4 mg/dL (1.8-2.4)
[2021-03-12 17:17] LABS: CREATININE 1.1 mg/dL (0.55-1.3); PHOSPHOROUS 3.6 mg/dL (2.5-4.9)
[2021-03-12 17:19] LABS: ALK PHOS 77 U/L (45-117); TOT PROT 8.4 g/dl (6.4-8.2)
[2021-03-12 17:42] LABS: ANISOCYTOSIS 2+; MACROCYTOSIS 1+; PLATELET ESTIMATE NORMAL
[2021-03-12 18:03] LABS: ANION GAP 5 MMOL/L (8-16); SGOT/AST 208 U/L (15-37)
[2021-03-12] MEDS ORDERED: KETAMINE HCL 200 MG/20 ML VIAL IVPB ONE (20:43)
[2021-03-12] MEDS ORDERED: KETAMINE HCL 200 MG/20 ML VIAL ONE (20:48)
[2021-03-12] MEDS ORDERED: cloNIDine HCL 0.1 MG TABLET PO ONE (21:16)
[2021-03-12] MEDS ORDERED: cloNIDine HCL 0.1 MG TABLET ONE (21:20)
[2021-03-12 21:35] LABS: BILIRUBIN,TOTAL 0.2 mg/dL (0.2-1); BLOOD UREA NITROGEN 18.5 mg/dL (7-18); CALCIUM 8.4 mg/dL (8.5-10.1); CREATININE 1.3 mg/dL (0.55-1.3); TOT PROT 7.1 g/dl (6.4-8.2)
[2021-03-12] MEDS ORDERED: ASPIRIN COATED 81 MG TABLET.EC PO ONE (21:38)
[2021-03-12] MEDS: MELATONIN 5 MG TABLETS PO SCH ×2 (22:35→22:45)
[2021-03-12] MEDS ORDERED: MELATONIN 5 MG TABLETS ONE (22:44)
[2021-03-12 23:03] LABS: URINE APPEARANCE CLEAR; URINE BILIRUBIN NEGATIVE (NEGATIVE); URINE COLOR YELLOW; URINE GLUCOSE (UA) NEGATIVE (NEGATIVE); URINE KETONE NEGATIVE (NEGATIVE); URINE LEUK ESTERASE NEGATIVE (NEGATIVE); URINE NITRITE NEGATIVE (NEGATIVE); URINE PROTEIN NEGATIVE (NEGATIVE); URINE UROBILINOGEN 0.2 mg/dL (0.2-1.0)
[2021-03-13] MEDS ORDERED: FOLIC ACID INJECTION - 1 MG, THIAMINE HCL 100 MG, MULTIVIT INJECTION ADULT 10 ML in SOD... IVPB ONE (02:00)
[2021-03-13] MEDS ORDERED: methaDONE HCL 40 MG DISPERSABLE TABLET PO SCH (06:00)
[2021-03-13] MEDS ORDERED: methaDONE HCL 40 MG DISPERSABLE TABLET ONE (06:47)
[2021-03-13 07:05] LABS: HEMATOCRIT 32.9 % (35.4-49); HEMOGLOBIN 10.9 GM/dL (11.7-16.9); MCH 26.9 pg (25.7-33.7); MEAN CELL VOLUME 81.5 fl (80-96); MEAN PLT VOLUME 8.1 fl (7.5-11.1); PLATELET COUNT 267 10^3/uL (134-434); RBC 4.04 M/mm3 (4.00-5.60); RDW 20.5 % (11.9-15.9); WHITE BLOOD COUNT 4.8 K/mm3 (4.0-10.0)
[2021-03-13 07:28] LABS: CHLORIDE 108 mmol/L (98-107); SODIUM 139 mmol/L (136-145)
[2021-03-13 07:32] LABS: CALCIUM 7.6 mg/dL (8.5-10.1)
[2021-03-13 07:33] LABS: ALBUMIN 2.4 g/dl (3.4-5.0); ANION GAP 6 MMOL/L (8-16); BLOOD UREA NITROGEN 15.7 mg/dL (7-18); CO2 25 mmol/L (21-32); GLUCOSE,RANDOM 81 mg/dL (74-106)
[2021-03-13 07:35] LABS: CHOLESTEROL 150 mg/dL (50-200); CREATININE 0.9 mg/dL (0.55-1.3); SGOT/AST 18 U/L (15-37); SGPT/ALT 20 U/L (13-61)
[2021-03-13 07:36] LABS: PHOSPHOROUS 2.5 mg/dL (2.5-4.9); TRIGLYCERIDES 83 mg/dL (0-150)
[2021-03-13 07:37] LABS: BILIRUBIN,TOTAL 0.2 mg/dL (0.2-1); LDL CHOLESTEROL (ONLY SJRH) 80 mg/dL (5-100); TOT PROT 5.9 g/dl (6.4-8.2)
[2021-03-13 07:38] LABS: ALK PHOS 67 U/L (45-117); HDL CHOLESTEROL 46 mg/dL (40-60)
[2021-03-13] MEDS ORDERED: ELVITEG/COB/EMTRI/TENOF (GENVOYA) TABLET (NF) PO SCH (08:00)
[2021-03-13] MEDS ORDERED: ENOXAPARIN NA (PORCINE) 40 MG/0.4 ML DISP.SYRIN SQ ONE (09:09)
[2021-03-13] MEDS ORDERED: ACETAMINOPHEN 325 MG TABLET (FP) PO PRN (09:28)
[2021-03-13] MEDS ORDERED: LIDOCAINE 5% TOPICAL PATCH ONE (09:45)
[2021-03-13] MEDS ORDERED: ACETAMINOPHEN 325 MG TABLET (FP) ONE (09:45)
[2021-03-13] MEDS ORDERED: ENOXAPARIN NA (PORCINE) 40 MG/0.4 ML DISP.SYRIN SQ SCH (10:00)
[2021-03-13] MEDS ORDERED: LIDOCAINE 5% TOPICAL PATCH TP SCH (10:00)
[2021-03-13 12:27] VITALS: BMI 18.4
[2021-03-13] MEDS ORDERED: clonazePAM 0.5 MG TABLET PO PRN (12:28)
[2021-03-13] MEDS ORDERED: clonazePAM 0.5 MG TABLET ONE (12:34)
[2021-03-13] MEDS ORDERED: ACETAMINOPHEN 1000 MG/100 ML VIAL IVPB ONE (17:28)
[2021-03-13] MEDS ORDERED: KETOROLAC TROMETHAMINE 30 MG/1 ML VIAL IVPUSH ONE (21:52)
[2021-03-13] MEDS ORDERED: oxyCODONE HCL 5 MG TABLET PO ONE (21:59)
[2021-03-13] MEDS ORDERED: LIDOCAINE PATCH REMOVAL MC SCH (22:00)
[2021-03-13] MEDS: MELATONIN 5 MG TABLETS PO SCH (22:46)
[2021-03-14] MEDS: methaDONE HCL 40 MG DISPERSABLE TABLET PO SCH (06:19)
[2021-03-14] MEDS ORDERED: PT OWN MED DRAWER 7, Y5N ONE (08:14)
[2021-03-14] MEDS: ELVITEG/COB/EMTRI/TENOF (GENVOYA) TABLET (NF) PO SCH (08:15)
[2021-03-14] MEDS: clonazePAM 0.5 MG TABLET PO PRN ×2 (08:17→14:48)
[2021-03-14] MEDS: LIDOCAINE 5% TOPICAL PATCH TP SCH (09:16)
[2021-03-14] MEDS: ENOXAPARIN NA (PORCINE) 40 MG/0.4 ML DISP.SYRIN SQ SCH (09:16)
[2021-03-14] MEDS ORDERED: oxyCODONE HCL 5 MG TABLET PO ONE ×2 (09:26→20:32)
[2021-03-14] MEDS: ASPIRIN COATED 81 MG TABLET.EC PO SCH (10:05)
[2021-03-14 12:53] LABS: HEMATOCRIT 32.7 % (35.4-49); HEMOGLOBIN 10.9 GM/dL (11.7-16.9); MCH 27.1 pg (25.7-33.7); MCHC 33.3 g/dl (32.0-35.9); MEAN CELL VOLUME 81.3 fl (80-96); MEAN PLT VOLUME 8.4 fl (7.5-11.1); PLATELET COUNT 268 10^3/uL (134-434); RBC 4.03 M/mm3 (4.00-5.60); RDW 20.4 % (11.9-15.9); WHITE BLOOD COUNT 5.5 K/mm3 (4.0-10.0)
[2021-03-14 13:12] LABS: CALCIUM 7.9 mg/dL (8.5-10.1)
[2021-03-14 13:13] LABS: BLOOD UREA NITROGEN 17.1 mg/dL (7-18); MAGNESIUM 2.2 mg/dL (1.8-2.4)
[2021-03-14 13:16] LABS: PHOSPHOROUS 2.8 mg/dL (2.5-4.9)
[2021-03-14] MEDS: LIDOCAINE PATCH REMOVAL MC SCH (21:13)
[2021-03-14] MEDS: MELATONIN 5 MG TABLETS PO SCH (21:13)
[2021-03-15] MEDS: methaDONE HCL 40 MG DISPERSABLE TABLET PO SCH (06:44)
[2021-03-15] MEDS: MULTIVITAMINS (DAILY MVI) TABLET (FP) PO SCH (09:08)
[2021-03-15] MEDS: ENOXAPARIN NA (PORCINE) 40 MG/0.4 ML DISP.SYRIN SQ SCH (09:08)
[2021-03-15] MEDS: ASPIRIN COATED 81 MG TABLET.EC PO SCH (09:08)
[2021-03-15] MEDS: ELVITEG/COB/EMTRI/TENOF (GENVOYA) TABLET (NF) PO SCH (09:09)
[2021-03-15] MEDS: LIDOCAINE 5% TOPICAL PATCH TP SCH (09:12)
[2021-03-15 09:38] LABS: HEMATOCRIT 37.8 % (35.4-49); HEMOGLOBIN 12.3 GM/dL (11.7-16.9); MCH 26.9 pg (25.7-33.7); MCHC 32.6 g/dl (32.0-35.9); MEAN CELL VOLUME 82.3 fl (80-96); MEAN PLT VOLUME 8.4 fl (7.5-11.1); PLATELET COUNT 242 10^3/uL (134-434); RBC 4.59 M/mm3 (4.00-5.60); WHITE BLOOD COUNT 4.8 K/mm3 (4.0-10.0)
[2021-03-15 09:56] LABS: MAGNESIUM 2.1 mg/dL (1.8-2.4)
[2021-03-15 09:57] LABS: BLOOD UREA NITROGEN 19.3 mg/dL (7-18)
[2021-03-15 10:00] LABS: PHOSPHOROUS 3.5 mg/dL (2.5-4.9)
[2021-03-15 10:09] LABS: CALCIUM 9.2 mg/dL (8.5-10.1)
[2021-03-15] MEDS: clonazePAM 0.5 MG TABLET PO PRN ×2 (10:57→16:10)
[2021-03-15] MEDS: ACETAMINOPHEN 325 MG TABLET (FP) PO PRN ×2 (15:46→20:52)
[2021-03-15] MEDS: NICOTINE 21 MG/24 HOURS TOPICAL PATCH TD SCH (15:46)
[2021-03-15] MEDS: LIDOCAINE PATCH REMOVAL MC SCH (21:45)
[2021-03-15] MEDS: MELATONIN 5 MG TABLETS PO SCH (21:45)
[2021-03-16] MEDS: methaDONE HCL 40 MG DISPERSABLE TABLET PO SCH (06:25)
[2021-03-16] MEDS ORDERED: PT OWN MED DRAWER 7, Y5N ONE (08:44)
[2021-03-16] MEDS: LIDOCAINE 5% TOPICAL PATCH TP SCH (09:05)
[2021-03-16] MEDS: CARVEDILOL 3.125 MG TABLET (FP) PO SCH ×2 (09:05→21:23)
[2021-03-16] MEDS: NICOTINE 21 MG/24 HOURS TOPICAL PATCH TD SCH (09:05)
[2021-03-16] MEDS: ELVITEG/COB/EMTRI/TENOF (GENVOYA) TABLET (NF) PO SCH (09:05)
[2021-03-16] MEDS: MULTIVITAMINS (DAILY MVI) TABLET (FP) PO SCH (09:05)
[2021-03-16] MEDS: ASPIRIN COATED 81 MG TABLET.EC PO SCH (09:05)
[2021-03-16] MEDS: ENOXAPARIN NA (PORCINE) 40 MG/0.4 ML DISP.SYRIN SQ SCH (09:06)
[2021-03-16] MEDS: clonazePAM 0.5 MG TABLET PO PRN ×3 (09:29→22:00)
[2021-03-16] MEDS: ACETAMINOPHEN 325 MG TABLET (FP) PO PRN (14:49)
[2021-03-16] MEDS: traMADol HCL 50 MG TABLET PO PRN (19:04)
[2021-03-16] MEDS: MELATONIN 5 MG TABLETS PO SCH (21:23)
[2021-03-16] MEDS: LIDOCAINE PATCH REMOVAL MC SCH (21:23)
[2021-03-16] MEDS ORDERED: ACETAMINOPHEN 1000 MG/100 ML VIAL IVPB ONE (22:43)
[2021-03-17] MEDS: methaDONE HCL 40 MG DISPERSABLE TABLET PO SCH (05:42)
[2021-03-17] MEDS ORDERED: ACETAMINOPHEN 1000 MG/100 ML VIAL IVPB PRN (10:47)
[2021-03-17] MEDS ORDERED: PT OWN MED DRAWER 7, Y5N ONE (10:48)
[2021-03-17 11:05] LABS: MCH 26.7 pg (25.7-33.7); MCHC 32.3 g/dl (32.0-35.9); MEAN CELL VOLUME 82.6 fl (80-96); MEAN PLT VOLUME 7.7 fl (7.5-11.1); PLATELET COUNT 252 10^3/uL (134-434); RBC 4.11 M/mm3 (4.00-5.60); RDW 21.2 % (11.9-15.9); WHITE BLOOD COUNT 5.1 K/mm3 (4.0-10.0)
[2021-03-17] MEDS: ENOXAPARIN NA (PORCINE) 40 MG/0.4 ML DISP.SYRIN SQ SCH (11:05)
[2021-03-17] MEDS: ELVITEG/COB/EMTRI/TENOF (GENVOYA) TABLET (NF) PO SCH (11:06)
[2021-03-17] MEDS: clonazePAM 0.5 MG TABLET PO PRN ×2 (11:06→21:02)
[2021-03-17] MEDS: ASPIRIN COATED 81 MG TABLET.EC PO SCH (11:07)
[2021-03-17] MEDS: traMADol HCL 50 MG TABLET PO PRN (11:07)
[2021-03-17] MEDS: CARVEDILOL 3.125 MG TABLET (FP) PO SCH ×2 (11:07→21:02)
[2021-03-17] MEDS: MULTIVITAMINS (DAILY MVI) TABLET (FP) PO SCH (11:07)
[2021-03-17] MEDS: LIDOCAINE 5% TOPICAL PATCH TP SCH (11:08)
[2021-03-17] MEDS: NICOTINE 21 MG/24 HOURS TOPICAL PATCH TD SCH (11:14)
[2021-03-17 11:37] LABS: BLOOD UREA NITROGEN 19.6 mg/dL (7-18)
[2021-03-17 11:40] LABS: CREATININE 0.9 mg/dL (0.55-1.3)
[2021-03-17] MEDS ORDERED: DEXTROSE 5%-WATER 100 ML IVPB ONE (14:30)
[2021-03-17] MEDS: CEFTRIAXONE 2 GM in DEXTROSE 5%-WATER 2 GM/100 ML BAG IVPB SCH (15:30)
[2021-03-17] MEDS: MELATONIN 5 MG TABLETS PO SCH (21:02)
[2021-03-17] MEDS: LIDOCAINE PATCH REMOVAL MC SCH (21:02)
[2021-03-18] MEDS: methaDONE HCL 40 MG DISPERSABLE TABLET PO SCH (05:56)
[2021-03-18 09:10] LABS: HEMATOCRIT 35.3 % (35.4-49); HEMOGLOBIN 11.5 GM/dL (11.7-16.9); MCHC 32.6 g/dl (32.0-35.9); MEAN PLT VOLUME 7.9 fl (7.5-11.1); PLATELET COUNT 235 10^3/uL (134-434); RBC 4.26 M/mm3 (4.00-5.60); RDW 20.9 % (11.9-15.9)
[2021-03-18 09:53] LABS: CALCIUM 8.7 mg/dL (8.5-10.1)
[2021-03-18 09:54] LABS: BLOOD UREA NITROGEN 19.7 mg/dL (7-18)
[2021-03-18 09:57] LABS: CREATININE 0.9 mg/dL (0.55-1.3)
[2021-03-18] MEDS ORDERED: DEXTROSE 5%-WATER 100 ML IVPB ONE (10:35)
[2021-03-18] MEDS ORDERED: PT OWN MED DRAWER 7, Y5N ONE (10:35)
[2021-03-18] MEDS: CEFTRIAXONE 2 GM in DEXTROSE 5%-WATER 2 GM/100 ML BAG IVPB SCH (11:29)
[2021-03-18] MEDS: CARVEDILOL 3.125 MG TABLET (FP) PO SCH ×2 (11:30→21:39)
[2021-03-18] MEDS: LIDOCAINE 5% TOPICAL PATCH TP SCH (11:30)
[2021-03-18] MEDS: ENOXAPARIN NA (PORCINE) 40 MG/0.4 ML DISP.SYRIN SQ SCH (11:30)
[2021-03-18] MEDS: MULTIVITAMINS (DAILY MVI) TABLET (FP) PO SCH (11:30)
[2021-03-18] MEDS: ASPIRIN COATED 81 MG TABLET.EC PO SCH (11:30)
[2021-03-18] MEDS: ELVITEG/COB/EMTRI/TENOF (GENVOYA) TABLET (NF) PO SCH (11:30)
[2021-03-18] MEDS: NICOTINE 21 MG/24 HOURS TOPICAL PATCH TD SCH (11:31)
[2021-03-18] MEDS: traMADol HCL 50 MG TABLET PO PRN ×2 (11:39→21:39)
[2021-03-18] MEDS: clonazePAM 0.5 MG TABLET PO PRN (11:39)
[2021-03-18] MEDS: MELATONIN 5 MG TABLETS PO SCH (21:39)
[2021-03-18] MEDS: LIDOCAINE PATCH REMOVAL MC SCH (21:40)
[2021-03-19] MEDS: methaDONE HCL 40 MG DISPERSABLE TABLET PO SCH (05:19)
[2021-03-19 09:12] LABS: HEMATOCRIT 32.6 % (35.4-49); HEMOGLOBIN 10.9 GM/dL (11.7-16.9); MCH 27.4 pg (25.7-33.7); MCHC 33.3 g/dl (32.0-35.9); MEAN CELL VOLUME 82.2 fl (80-96); MEAN PLT VOLUME 8.4 fl (7.5-11.1); PLATELET COUNT 235 10^3/uL (134-434); RBC 3.97 M/mm3 (4.00-5.60); RDW 20.8 % (11.9-15.9); WHITE BLOOD COUNT 4.3 K/mm3 (4.0-10.0)
[2021-03-19 09:31] LABS: BLOOD UREA NITROGEN 21.3 mg/dL (7-18); CALCIUM 8.9 mg/dL (8.5-10.1)
[2021-03-19 09:34] LABS: CREATININE 0.8 mg/dL (0.55-1.3)
[2021-03-19] MEDS ORDERED: DEXTROSE 5%-WATER 100 ML IVPB ONE (09:48)
[2021-03-19] MEDS: clonazePAM 0.5 MG TABLET PO PRN ×2 (10:00→21:50)
[2021-03-19] MEDS: CARVEDILOL 3.125 MG TABLET (FP) PO SCH ×2 (10:01→21:50)
[2021-03-19] MEDS ORDERED: PT OWN MED DRAWER 7, Y5N ONE (10:01)
[2021-03-19] MEDS: ENOXAPARIN NA (PORCINE) 40 MG/0.4 ML DISP.SYRIN SQ SCH (10:01)
[2021-03-19] MEDS: ASPIRIN COATED 81 MG TABLET.EC PO SCH (10:01)
[2021-03-19] MEDS: MULTIVITAMINS (DAILY MVI) TABLET (FP) PO SCH (10:01)
[2021-03-19] MEDS: ELVITEG/COB/EMTRI/TENOF (GENVOYA) TABLET (NF) PO SCH (10:03)
[2021-03-19] MEDS: CEFTRIAXONE 2 GM in DEXTROSE 5%-WATER 2 GM/100 ML BAG IVPB SCH (10:03)
[2021-03-19] MEDS: LIDOCAINE 5% TOPICAL PATCH TP SCH (10:04)
[2021-03-19] MEDS: NICOTINE 21 MG/24 HOURS TOPICAL PATCH TD SCH (10:04)
[2021-03-19] MEDS: MELATONIN 5 MG TABLETS PO SCH (21:50)
[2021-03-19] MEDS: LIDOCAINE PATCH REMOVAL MC SCH (21:50)
[2021-03-20] MEDS: methaDONE HCL 40 MG DISPERSABLE TABLET PO SCH (06:18)
[2021-03-20] MEDS ORDERED: PT OWN MED DRAWER 7, Y5N ONE (08:54)
[2021-03-20] MEDS ORDERED: DEXTROSE 5%-WATER 100 ML IVPB ONE (08:54)
[2021-03-20] MEDS: CEFTRIAXONE 2 GM in DEXTROSE 5%-WATER 2 GM/100 ML BAG IVPB SCH (09:15)
[2021-03-20] MEDS: clonazePAM 0.5 MG TABLET PO PRN ×3 (09:16→21:40)
[2021-03-20] MEDS: traMADol HCL 50 MG TABLET PO PRN ×2 (09:16→18:01)
[2021-03-20] MEDS: ASPIRIN COATED 81 MG TABLET.EC PO SCH (09:17)
[2021-03-20] MEDS: MULTIVITAMINS (DAILY MVI) TABLET (FP) PO SCH (09:17)
[2021-03-20] MEDS: ELVITEG/COB/EMTRI/TENOF (GENVOYA) TABLET (NF) PO SCH (09:17)
[2021-03-20] MEDS: ENOXAPARIN NA (PORCINE) 40 MG/0.4 ML DISP.SYRIN SQ SCH (09:17)
[2021-03-20] MEDS: CARVEDILOL 3.125 MG TABLET (FP) PO SCH ×2 (09:17→21:40)
[2021-03-20] MEDS: NICOTINE 21 MG/24 HOURS TOPICAL PATCH TD SCH (09:18)
[2021-03-20] MEDS: LIDOCAINE 5% TOPICAL PATCH TP SCH (09:18)
[2021-03-20] MEDS: MELATONIN 5 MG TABLETS PO SCH (21:40)
[2021-03-20] MEDS: LIDOCAINE PATCH REMOVAL MC SCH (21:40)
[2021-03-21] MEDS: methaDONE HCL 40 MG DISPERSABLE TABLET PO SCH (06:21)
[2021-03-21] MEDS ORDERED: PT OWN MED DRAWER 7, Y5N ONE (08:46)
[2021-03-21] MEDS: traMADol HCL 50 MG TABLET PO PRN ×2 (08:48→20:13)
[2021-03-21] MEDS: ELVITEG/COB/EMTRI/TENOF (GENVOYA) TABLET (NF) PO SCH (08:48)
[2021-03-21] MEDS ORDERED: DEXTROSE 5%-WATER 100 ML IVPB ONE (09:18)
[2021-03-21] MEDS: CARVEDILOL 3.125 MG TABLET (FP) PO SCH ×2 (09:40→21:23)
[2021-03-21] MEDS: MULTIVITAMINS (DAILY MVI) TABLET (FP) PO SCH (09:40)
[2021-03-21] MEDS: clonazePAM 0.5 MG TABLET PO PRN ×3 (09:40→20:13)
[2021-03-21] MEDS: ASPIRIN COATED 81 MG TABLET.EC PO SCH (09:40)
[2021-03-21] MEDS: ENOXAPARIN NA (PORCINE) 40 MG/0.4 ML DISP.SYRIN SQ SCH (09:40)
[2021-03-21] MEDS: CEFTRIAXONE 2 GM in DEXTROSE 5%-WATER 2 GM/100 ML BAG IVPB SCH (09:41)
[2021-03-21] MEDS: LIDOCAINE 5% TOPICAL PATCH TP SCH (09:41)
[2021-03-21] MEDS: NICOTINE 21 MG/24 HOURS TOPICAL PATCH TD SCH (09:41)
[2021-03-21] MEDS: MELATONIN 5 MG TABLETS PO SCH (21:23)
[2021-03-21] MEDS: LIDOCAINE PATCH REMOVAL MC SCH (21:23)
[2021-03-22] MEDS: methaDONE HCL 40 MG DISPERSABLE TABLET PO SCH (05:39)
[2021-03-22] MEDS ORDERED: PT OWN MED DRAWER 7, Y5N ONE (07:55)
[2021-03-22] MEDS: ELVITEG/COB/EMTRI/TENOF (GENVOYA) TABLET (NF) PO SCH (08:46)
[2021-03-22] MEDS ORDERED: DEXTROSE 5%-WATER 100 ML IVPB ONE (10:21)
[2021-03-22] MEDS: CARVEDILOL 3.125 MG TABLET (FP) PO SCH ×2 (10:24→21:15)
[2021-03-22] MEDS: traMADol HCL 50 MG TABLET PO PRN (10:24)
[2021-03-22] MEDS: ASPIRIN COATED 81 MG TABLET.EC PO SCH (10:24)
[2021-03-22] MEDS: clonazePAM 0.5 MG TABLET PO PRN ×2 (10:25→20:24)
[2021-03-22] MEDS: CEFTRIAXONE 2 GM in DEXTROSE 5%-WATER 2 GM/100 ML BAG IVPB SCH (10:25)
[2021-03-22] MEDS: MULTIVITAMINS (DAILY MVI) TABLET (FP) PO SCH (10:25)
[2021-03-22] MEDS: NICOTINE 21 MG/24 HOURS TOPICAL PATCH TD SCH (10:25)
[2021-03-22] MEDS: LIDOCAINE 5% TOPICAL PATCH TP SCH (10:25)
[2021-03-22] MEDS: ENOXAPARIN NA (PORCINE) 40 MG/0.4 ML DISP.SYRIN SQ SCH (11:13)
[2021-03-22] MEDS: MELATONIN 5 MG TABLETS PO SCH (21:16)
[2021-03-23] MEDS: LIDOCAINE PATCH REMOVAL MC SCH ×2 (04:16→21:14)
[2021-03-23] MEDS: methaDONE HCL 40 MG DISPERSABLE TABLET PO SCH (05:53)
[2021-03-23] MEDS: traMADol HCL 50 MG TABLET PO PRN (09:43)
[2021-03-23] MEDS: NICOTINE 21 MG/24 HOURS TOPICAL PATCH TD SCH (09:44)
[2021-03-23] MEDS: MULTIVITAMINS (DAILY MVI) TABLET (FP) PO SCH (09:44)
[2021-03-23] MEDS: CARVEDILOL 3.125 MG TABLET (FP) PO SCH ×2 (09:44→21:14)
[2021-03-23] MEDS: ASPIRIN COATED 81 MG TABLET.EC PO SCH (09:44)
[2021-03-23] MEDS: LIDOCAINE 5% TOPICAL PATCH TP SCH (09:45)
[2021-03-23] MEDS: ENOXAPARIN NA (PORCINE) 40 MG/0.4 ML DISP.SYRIN SQ SCH (09:45)
[2021-03-23] MEDS: ELVITEG/COB/EMTRI/TENOF (GENVOYA) TABLET (NF) PO SCH (09:46)
[2021-03-23] MEDS: clonazePAM 0.5 MG TABLET PO PRN (09:52)
[2021-03-23] MEDS ORDERED: DEXTROSE 5%-WATER 100 ML IVPB ONE (11:26)
[2021-03-23] MEDS: CEFTRIAXONE 2 GM in DEXTROSE 5%-WATER 2 GM/100 ML BAG IVPB SCH (11:34)
[2021-03-23] MEDS: MELATONIN 5 MG TABLETS PO SCH (21:13)
[2021-03-24] MEDS: methaDONE HCL 40 MG DISPERSABLE TABLET PO SCH (06:03)
[2021-03-24] MEDS ORDERED: DEXTROSE 5%-WATER 100 ML IVPB ONE (09:57)
[2021-03-24] MEDS: CEFTRIAXONE 2 GM in DEXTROSE 5%-WATER 2 GM/100 ML BAG IVPB SCH (10:30)
[2021-03-24] MEDS ORDERED: BACITRACIN 15 GM TUBE TOPICAL OINTMENT TP ONE (10:30)
[2021-03-24] MEDS: CARVEDILOL 3.125 MG TABLET (FP) PO SCH ×2 (10:31→20:59)
[2021-03-24] MEDS: MULTIVITAMINS (DAILY MVI) TABLET (FP) PO SCH (10:32)
[2021-03-24] MEDS: ASPIRIN COATED 81 MG TABLET.EC PO SCH (10:32)
[2021-03-24] MEDS: NICOTINE 21 MG/24 HOURS TOPICAL PATCH TD SCH (10:32)
[2021-03-24] MEDS: LIDOCAINE 5% TOPICAL PATCH TP SCH (10:32)
[2021-03-24] MEDS: ELVITEG/COB/EMTRI/TENOF (GENVOYA) TABLET (NF) PO SCH (10:33)
[2021-03-24] MEDS: traMADol HCL 50 MG TABLET PO PRN ×2 (10:41→20:57)
[2021-03-24] MEDS: clonazePAM 0.5 MG TABLET PO PRN ×2 (10:46→17:25)
[2021-03-24] MEDS: ENOXAPARIN NA (PORCINE) 40 MG/0.4 ML DISP.SYRIN SQ SCH (10:46)
[2021-03-24] MEDS: MELATONIN 5 MG TABLETS PO SCH (20:59)
[2021-03-24] MEDS: LIDOCAINE PATCH REMOVAL MC SCH (20:59)
[2021-03-24 21:06] VITALS: TEMP 98.2
[2021-03-25] MEDS: methaDONE HCL 40 MG DISPERSABLE TABLET PO SCH (05:25)
[2021-03-25] MEDS ORDERED: PT OWN MED DRAWER 7, Y5N ONE (08:40)
[2021-03-25] MEDS: clonazePAM 0.5 MG TABLET PO PRN (08:50)
[2021-03-25] MEDS: traMADol HCL 50 MG TABLET PO PRN (08:51)
[2021-03-25] MEDS: ELVITEG/COB/EMTRI/TENOF (GENVOYA) TABLET (NF) PO SCH (08:51)
[2021-03-25 09:08] VITALS: BP 117/67; PULSE 92
[2021-03-25] MEDS ORDERED: DEXTROSE 5%-WATER 100 ML IVPB ONE (09:16)
[2021-03-25] MEDS: NICOTINE 21 MG/24 HOURS TOPICAL PATCH TD SCH (11:26)
[2021-03-25] MEDS: LIDOCAINE 5% TOPICAL PATCH TP SCH (11:26)
[2021-03-25] MEDS: ENOXAPARIN NA (PORCINE) 40 MG/0.4 ML DISP.SYRIN SQ SCH (11:26)
[2021-03-25] MEDS: CEFTRIAXONE 2 GM in DEXTROSE 5%-WATER 2 GM/100 ML BAG IVPB SCH (11:27)
[2021-03-25] MEDS: MULTIVITAMINS (DAILY MVI) TABLET (FP) PO SCH (11:28)
[2021-03-25] MEDS: CARVEDILOL 3.125 MG TABLET (FP) PO SCH (11:28)
[2021-03-25] MEDS: ASPIRIN COATED 81 MG TABLET.EC PO SCH (11:28)
== END 2021-03-25 13:36 | DRG 894 ==
LOC: JER 12:49 → JERBED 20:47 → J5S 03-13 15:20
PROVIDERS: ADMIT Internal Medicine; ATTEND Internal Medicine
PROC: 02H633Z Insertion of Infusion Device into Right Atrium, Percutaneous Approach (ICD-10-PCS; principal; 2021-03-23)
DX: M86.60 Other chronic osteomyelitis, unspecified site (principal); I24.8 Other forms of acute ischemic heart disease; K56.7 Ileus, unspecified; K80.10 Calculus of gallbladder with chronic cholecystitis without obstruction; M41.9 Scoliosis, unspecified; B20 Human immunodeficiency virus [HIV] disease; D64.9 Anemia, unspecified; F11.23 Opioid dependence with withdrawal; F10.239 Alcohol dependence with withdrawal, unspecified; F17.210 Nicotine dependence, cigarettes, uncomplicated; I25.10 Atherosclerotic heart disease of native coronary artery without angina pectoris; F31.9 Bipolar disorder, unspecified; I10 Essential (primary) hypertension; M48.00 Spinal stenosis, site unspecified; M46.20 Osteomyelitis of vertebra, site unspecified; R11.2 Nausea with vomiting, unspecified; R45.1 Restlessness and agitation; Z59.00 Homelessness unspecified; M86.9 Osteomyelitis, unspecified; Z86.19 Personal history of other infectious and parasitic diseases
CPT/HCPCS: 36415; 36569; 72125-TC; 72128-TC; 72131-TC; 74177-TC; 80048; 80053; 80061; 81003; 82550; 82553; 83036; 83690; 83735; 84100; 84443; 84484; 85025; 85027; 86140; 86359; 86360; 87040; 87536; 93005; 93010; 93306-TC; 99285-25; C9803; J0131; J0735; Q9967; U0003; U0005

== ENCOUNTER 2022-01-14 16:47 | Inpatient (IN) | payer OTHER ==
[2022-01-14] MEDS ORDERED: guaiFENesin 200 MG/10 ML 10 ML UNIT-DOSE CUPS PO PRN (21:17)
[2022-01-14] MEDS ORDERED: MAGNESIUM CITRATE 300 ML BOTTLE PO PRN (21:17)
[2022-01-14] MEDS ORDERED: ACETAMINOPHEN 325 MG TABLET (FP) PO PRN (21:17)
[2022-01-14] MEDS ORDERED: hydrOXYzine PAMOATE 25 MG CAPSULE (FP) PO PRN (21:17)
[2022-01-14] MEDS ORDERED: NALOXONE HCL (KLOXXADO) 8 MG SPRAY NS PRN (21:17)
[2022-01-14] MEDS ORDERED: P-EPHED 60MG/TRIPROLIDI 2.5MG TABLET PO PRN (21:17)
[2022-01-14] MEDS ORDERED: NICOTINE POLACRILEX 2 MG GUM BUC PRN (21:17)
[2022-01-14] MEDS ORDERED: MAG HYDROX/AL HYDROX/SIMETH 30 ML UNIT-DOSE CUP PO PRN (21:17)
[2022-01-14] MEDS ORDERED: IBUPROFEN 400 MG TABLET (FP) PO PRN (21:17)
[2022-01-14] MEDS ORDERED: NALOXONE HCL 0.4 MG/ML VIAL IM PRN (21:17)
[2022-01-14] MEDS ORDERED: LOPERAMIDE HCL 2 MG CAPSULE PO PRN (21:17)
[2022-01-14] MEDS ORDERED: MAGNESIUM HYDROX 2400MG/30ML ORAL SUSPENSION 30 ML CUP PO PRN (21:17)
[2022-01-14] MEDS ORDERED: MELATONIN 5 MG TABLETS PO SCH (22:00)
[2022-01-15] MEDS: THIAMINE HCL 100 MG TABLET (FP) PO SCH ×2 (00:09→21:45)
[2022-01-15] MEDS: PRENATAL VITAMINS W/ FOLIC ACID TABLET (FP) PO SCH (10:12)
[2022-01-15] MEDS: NICOTINE 14 MG/24 HOURS TOPICAL PATCH TD SCH (10:24)
[2022-01-15] MEDS ORDERED: METHOCARBAMOL 500 MG TABLET PO PRN (10:51)
[2022-01-15] MEDS ORDERED: cloNIDine HCL 0.1 MG TABLET PO ONE (10:59)
[2022-01-15 14:40] LABS: EPI CELLS 13 /uL (0-25.1); HYALINE CASTS 4 /uL (0-3.1); PH,URINE 5.5 (5.0-8.0); URINE APPEARANCE CLEAR; URINE BACTERIA 9 /uL (0-1359); URINE BILIRUBIN NEGATIVE (NEGATIVE); URINE COLOR YELLOW; URINE GLUCOSE (UA) NEGATIVE (NEGATIVE); URINE KETONE TRACE (NEGATIVE); URINE LEUK ESTERASE NEGATIVE (NEGATIVE); URINE NITRITE NEGATIVE (NEGATIVE); URINE PROTEIN 1+ (NEGATIVE); URINE UROBILINOGEN 0.2 mg/dL (0.2-1.0); URINE WBC 32 /uL (0-25.8)
[2022-01-15] MEDS: BUPRENORPHINE/NALOXONE 8 MG/2 MG FILM PACKET SL PRN (14:46)
[2022-01-15 15:34] LABS: URINE RBC 66.7 /uL (0-23.9)
[2022-01-15 15:35] LABS: URINE CRYSTALS MODERATE /hpf
[2022-01-15] MEDS: cloNIDine HCL 0.1 MG TABLET PO SCH (21:45)
[2022-01-15] MEDS ORDERED: SUVOREXANT 10 MG TABLET PO PRN (22:00)
[2022-01-16] MEDS: PRENATAL VITAMINS W/ FOLIC ACID TABLET (FP) PO SCH (10:04)
[2022-01-16] MEDS: cloNIDine HCL 0.1 MG TABLET PO SCH ×2 (10:04→21:35)
[2022-01-16] MEDS: NICOTINE 14 MG/24 HOURS TOPICAL PATCH TD SCH (10:05)
[2022-01-16] MEDS: BUPRENORPHINE/NALOXONE 8 MG/2 MG FILM PACKET SL PRN (12:04)
[2022-01-16 17:13] VITALS: RESP 17; TEMP 99.1
[2022-01-16] MEDS ORDERED: LIDOCAINE 5% TOPICAL PATCH TP SCH (17:30)
[2022-01-16] MEDS ORDERED: BUPRENORPHINE/NALOXONE 4 MG/1 MG FILM PACKET SL ONE (17:30)
[2022-01-16 21:34] VITALS: BP 123/80; PULSE 78
[2022-01-16] MEDS: THIAMINE HCL 100 MG TABLET (FP) PO SCH (21:35)
[2022-01-16] MEDS ORDERED: LIDOCAINE PATCH REMOVAL MC SCH (22:00)
== END 2022-01-17 09:23 | disposition left against medical advice (07) | DRG 770 ==
LOC: YASAS 16:47 → Y3W 23:53
PROVIDERS: ADMIT Allergy & Immunology; ATTEND Psychiatry & Neurology Pain Medicine
PROC: HZ42ZZZ Group Counseling for Substance Abuse Treatment, Cognitive-Behavioral (ICD-10-PCS; principal; 2022-01-14)
DX: F11.20 Opioid dependence, uncomplicated (principal); F14.20 Cocaine dependence, uncomplicated; F17.210 Nicotine dependence, cigarettes, uncomplicated; F19.280 Other psychoactive substance dependence with psychoactive substance-induced anxiety disorder; F19.282 Other psychoactive substance dependence with psychoactive substance-induced sleep disorder; Z21 Asymptomatic human immunodeficiency virus [HIV] infection status; J45.20 Mild intermittent asthma, uncomplicated; M54.6 Pain in thoracic spine; G89.29 Other chronic pain; Z86.11 Personal history of tuberculosis; Z86.19 Personal history of other infectious and parasitic diseases; Z87.39 Personal history of other diseases of the musculoskeletal system and connective tissue; Z56.0 Unemployment, unspecified; Z59.02 Unsheltered homelessness
CPT/HCPCS: 81003; 87811; C9803-CS; U0003; U0005

== ENCOUNTER 2024-02-09 06:52 | Inpatient (IN) | payer OTHER ==
[2024-02-09 07:27] VITALS: BMI 21.1
[2024-02-09] MEDS ORDERED: NALOXONE HCL 0.4 MG/ML VIAL IM PRN (08:58)
[2024-02-09] MEDS ORDERED: MAG HYDROX/AL HYDROX/SIMETH 30 ML UNIT-DOSE CUP PO PRN (08:58)
[2024-02-09] MEDS ORDERED: ACETAMINOPHEN 325 MG TABLET (FP) PO PRN (08:58)
[2024-02-09] MEDS ORDERED: IBUPROFEN 400 MG TABLET (FP) PO PRN (08:58)
[2024-02-09] MEDS ORDERED: MAGNESIUM HYDROX 2400MG/30ML ORAL SUSPENSION 30 ML CUP PO PRN (08:58)
[2024-02-09] MEDS ORDERED: guaiFENesin 600 MG TABLET.ER (FP) PO PRN (08:58)
[2024-02-09] MEDS ORDERED: BENZOCAINE/MENTHOL (CHLORASEPTIC ) LOZENGE MM PRN (08:58)
[2024-02-09] MEDS ORDERED: POLYETHYLENE GLYCOL (HEALTHYLAX) 3350 17 GM PACKET PO PRN (08:58)
[2024-02-09] MEDS ORDERED: P-EPHED 60MG/TRIPROLIDI 2.5MG TABLET PO PRN (08:58)
[2024-02-09] MEDS ORDERED: LOPERAMIDE HCL 2 MG CAPSULE PO PRN (08:58)
[2024-02-09] MEDS ORDERED: NALOXONE (NARCAN) HCL 4 MG/0.1 ML SPRAY NS PRN (08:58)
[2024-02-09] MEDS ORDERED: DOCUSATE SODIUM 100 MG CAPSULE (FP) PO PRN (08:58)
[2024-02-09] MEDS ORDERED: BENZONATATE 200 MG CAPSULE PO PRN (08:58)
[2024-02-09] MEDS: PRENATAL VITAMINS W/ FOLIC ACID TABLET (FP) PO SCH (10:29)
[2024-02-09] MEDS: TUBERCULIN PPD 5 TU/0.1ML SYRINGE (IN PATIENT USE ONLY) ID ONE (13:47)
[2024-02-09] MEDS: ELVITEG/COB/EMTRI/TENOF (GENVOYA) TABLET PO SCH (15:42)
[2024-02-09] MEDS ORDERED: BUPRENORPHINE/NALOXONE 8 MG/2 MG FILM PACKET SL SCH (16:15)
[2024-02-09] MEDS: BUPRENORPHINE/NALOXONE 8 MG/2 MG FILM PACKET SL SCH (19:00)
[2024-02-09] MEDS: hydrOXYzine PAMOATE 25 MG CAPSULE (FP) PO PRN (21:55)
[2024-02-09] MEDS: THIAMINE 100 MG TABLET PO SCH (21:55)
[2024-02-09] MEDS: MELATONIN 5 MG TABLETS PO SCH (21:55)
[2024-02-10 10:28] LABS: POTASSIUM 4.6 mmol/L (3.5-5.1)
[2024-02-10 10:34] LABS: HEMATOCRIT 38.8 % (35.4-49); HEMOGLOBIN 12.6 GM/dL (11.7-16.9); MCH 29.3 pg (25.7-33.7); MCHC 32.6 g/dl (32.0-35.9); MEAN CELL VOLUME 89.9 fl (80-96); MEAN PLT VOLUME 8.4 fl (7.5-11.1); PLATELET COUNT 268 10^3/uL (134-434); RBC 4.31 M/mm3 (4.00-5.60); RDW 15.1 % (11.9-15.9); WHITE BLOOD COUNT 6.4 K/mm3 (4.0-10.0)
[2024-02-10] MEDS: ELVITEG/COB/EMTRI/TENOF (GENVOYA) TABLET PO SCH (10:34)
[2024-02-10 10:42] LABS: ALBUMIN 2.7 g/dl (3.4-5.0)
[2024-02-10 10:45] LABS: CREATININE 0.8 mg/dL (0.55-1.3)
[2024-02-10 10:46] LABS: BILIRUBIN,TOTAL 0.7 mg/dL (0.2-1); TOT PROT 5.5 g/dl (6.4-8.2)
[2024-02-10 12:47] LABS: SYPHILIS W/ RPR CONF REACTIVE (NONREACTIVE)
[2024-02-10] MEDS: GABAPENTIN 300 MG CAPSULE PO PRN (21:54)
[2024-02-10] MEDS: NICOTINE POLACRILEX 2 MG GUM BUC PRN (21:56)
[2024-02-12] MEDS: NEOMYCIN/POLYMYXN/HC OTIC SUSPENSION 10 ML BOTTLE AD SCH (12:20)
[2024-02-15] MEDS: TOLNAFTATE 1% CREAM 15 GM TUBE TP SCH (13:45)
[2024-02-19] MEDS: MELATONIN 5 MG TABLETS PO ONE (23:40)
[2024-02-19] MEDS: hydrOXYzine PAMOATE 25 MG CAPSULE (FP) PO ONE (23:40)
[2024-02-20] MEDS: MELATONIN 5 MG TABLETS PO SCH (21:12)
[2024-02-20] MEDS: IBUPROFEN 600 MG TABLET (FP) PO PRN (23:00)
[2024-02-21] MEDS: busPIRone HCL 10 MG TABLET (FP) PO SCH (13:02)
[2024-02-24] MEDS: GABAPENTIN 300 MG CAPSULE PO ONE (12:07)
[2024-02-24] MEDS: GABAPENTIN 300 MG CAPSULE PO SCH ×2 (14:29→21:47)
[2024-02-24] MEDS: propRANOLol HCL 10 MG TABLET PO PRN (14:42)
[2024-02-24] MEDS: MIRTAZAPINE 15 MG TABLET (FP) PO SCH (21:46)
[2024-02-24] MEDS ORDERED: GABAPENTIN 300 MG CAPSULE PO SCH (22:00)
[2024-03-05 06:42] VITALS: BP 111/75; PULSE 60; RESP 16; TEMP 97.4
[2024-03-05] MEDS: NALOXONE (NYS OPIOID OVERDOSE PROGRAM) 4 MG/0.1 ML SPRAY NS PRN (11:44)
== END 2024-03-05 11:47 | disposition home or self-care (01) | DRG 772 ==
LOC: YASAS 06:52 → Y3NR 09:14 → Y3E 02-12 12:31
PROVIDERS: ADMIT Allergy & Immunology; ATTEND Psychiatry & Neurology Pain Medicine
PROC: HZ42ZZZ Group Counseling for Substance Abuse Treatment, Cognitive-Behavioral (ICD-10-PCS; principal; 2024-02-09)
DX: F14.20 Cocaine dependence, uncomplicated (principal); F11.20 Opioid dependence, uncomplicated; F17.210 Nicotine dependence, cigarettes, uncomplicated; F19.282 Other psychoactive substance dependence with psychoactive substance-induced sleep disorder; F19.280 Other psychoactive substance dependence with psychoactive substance-induced anxiety disorder; F19.24 Other psychoactive substance dependence with psychoactive substance-induced mood disorder; Z21 Asymptomatic human immunodeficiency virus [HIV] infection status; B35.3 Tinea pedis; M54.6 Pain in thoracic spine; G89.29 Other chronic pain; Z86.11 Personal history of tuberculosis
CPT/HCPCS: 36415; 71046-TC-FY; 80053; 80305; 80307; 85027; 86593; 86780; 86803; 87522; 87811; 93005; 93010